=== PATIENT | female | born 1980 | race Caucasian/White ===

== ENCOUNTER 2018-01-12 20:48 | Emergency (ER) | payer OTHER, MEDICAID, SELFPAY ==
--- NOTE | 2018-08-07 00:49 | ED.PREGNANCY ---
HPI - Related Data Home Medications Medication Instructions Recorded Confirmed acetaminophen 325 mg capsule 325 mg PO Q6H PRN 05/22/18 05/22/18 albuterol sulfate 90 mcg/actuation 2 puff INHALATION Q6H PRN 05/22/18 05/22/18 breath activated powder inhaler clotrimazole 1 % vaginal cream 1 applicator VAG BEDTIME 05/22/18 05/22/18 1 tab PO DAILY 05/22/18 05/22/18 vitamin,calcium,kvrdahle-dmqe-odxyw acid tablet Previous Rx's Medication Instructions Recorded amoxicillin 875 mg-potassium 1 tab PO BID #20 tab 07/18/18 clavulanate 125 mg tablet Allergies Allergy/AdvReac Type Severity Reaction Status Date / Time bee venom protein (honey bee) Allergy Unknown Verified 05/22/18 15:38 aspirin AdvReac Vomits Verified 05/22/18 15:38 Course Course Narrative: The patient was evaluated for threatened miscarriage in the ER on 01/12/2018. Unfortunately the patient had been registered under an increased name. All treatment was recorded under that in creatinine,. The chart was administrated the corrected, the record was reentered crackly under her name. She was describing the ER with a diagnosis of threatened miscarriage. On the date above. Her record is correctly under her name. Discharge Plan Departure Patient Disposition: Home Clinical Impression: Administrative encounter Discharge Date/Time: 01/12/18 23:47 Prescriptions: No Action clotrimazole 1 % cream 1 applicator VAG BEDTIME RF: 0 prenat.vits,celena,qrd-gpok-kpkur tablet 1 tab PO DAILY RF: 0 acetaminophen [Tylenol] 325 mg capsule 325 mg PO Q6H PRNRF: 0 albuterol sulfate 90 mcg/actuation aerosol powdr breath activated 2 puff INHALATION Q6H PRNRF: 0 amoxicillin-pot clavulanate [Augmentin] 875-125 mg tablet 1 tab PO BID Qty: 20 RF: 0
== END 2018-01-12 23:47 | disposition home or self-care (01) ==
LOC: ED 05-24 14:20
PROVIDERS: Emergency Provider Emergency Medicine; PCP Specialist
DX: O20.0 Threatened abortion (principal)
CPT/HCPCS: 36415; 81001; 81003; 81025; 84702; 85025; 86900; 86901; 99283; 99284

== ENCOUNTER → 2018-05-22 15:28 | Outpatient (CLI) | payer OTHER, MEDICAID, SELFPAY ==
[2018-05-22 16:14] LABS: Hemoglobin A1C% w Est Avg Glu 5.6 % (4.0-6.0)
[2018-05-22 16:19] LABS: Add Manual Diff / Slide Review NO; Basophils Percent Auto 0.3 % (0-2); Eosinophils Percent Auto 1.1 % (2-4); Hemoglobin 12.5 g/dL (12.0-16.0); Lymphocytes Percent Auto 16.1 % (25-40); Mean Corpuscular HGB Conc 33.9 % (30-36); Mean Corpuscular Volume 91.3 fL (80-100); Monocytes Percent Auto 7.3 % (3-14); Neutrophils Absolute Auto 9700 /uL (3000-5900); Neutrophils Percent Auto 75.2 % (50-75); Platelet Count 358 X10^3/uL (150-400); Red Blood Cell Count 4.05 X10^6/uL (4.0-5.2); Red Cell Distribution Width 13.2 % (11.6-14.8); White Blood Cell Count 12.8 X10^3/uL (4.5-11.0)
[2018-05-22 16:33] LABS: Glucose 101 mg/dL (70-100)
[2018-05-22 17:02] LABS: Appearance Urine UA CLEAR; Bilirubin Urine UA NEGATIVE (NEGATIVE); Color Urine UA YELLOW; Glucose Urine UA TRACE g/dL (Normal); Ketones Urine UA TRACE (NEGATIVE); Leukocyte Esterase Urine UA NEGATIVE (NEGATIVE); Nitrite Urine UA NEGATIVE (Negative); Occult Blood Urine UA 2+ (Negative); Protein Urine UA NEGATIVE (Negative); Specific Gravity Urine UA 1.025 (1.000-1.035); Urobilinogen Urine UA 0.2 E.U./dL (0.2)
[2018-05-22 17:06] LABS: Hepatitis B Surface Antigen NEGATIVE s/c (NEGATIVE); Rubella Antibody IgG 17.5 IU/mL (>15)
[2018-05-22 17:16] LABS: Amorphous Sediment Urine 1+; Bacteria Urine Moderate (10-30); Mucus Urine 1+ (Negative); RBC Urine 1-5/HPF (0-5/HPF); Squamous Epithelial Cell Urine 1-5 /HPF; WBC Urine 1-5/HPF (0-5/HPF)
[2018-05-22 17:24] LABS: HIV 1 and 2 Antibody NEGATIVE (NEGATIVE); Hep C Virus Ab w/Reflex Quant NEGATIVE s/c (NEGATIVE)
[2018-05-24 14:21] LABS: RPR Screen Nonreactive (Nonreactive)
[2018-05-24 15:19] LABS: HSV 2 IGG AB < 0.90 index (< 0.90)
== END ==
PROVIDERS: PCP Specialist
DX: Z34.81 Encounter for supervision of other normal pregnancy, first trimester (principal)
CPT/HCPCS: 36415; 80055; 81003; 81015; 82947; 83036; 86695; 86696; 86703; 86787; 86803; 86850; 86900; 86901; 87086

== ENCOUNTER → 2018-06-19 14:21 | Outpatient (CLI) | payer OTHER, MEDICAID, SELFPAY ==
[2018-06-22 14:59] LABS: Sequential Screen 1st Trimeste FINAL PENDING
== END ==
PROVIDERS: PCP Specialist
DX: Z33.1 Pregnant state, incidental (principal); Z36.0 Encounter for antenatal screening for chromosomal anomalies; Z34.81 Encounter for supervision of other normal pregnancy, first trimester
CPT/HCPCS: 84163; 84702

== ENCOUNTER → 2018-08-08 15:11 | Outpatient (CLI) | payer OTHER, MEDICAID, SELFPAY ==
[2018-08-15 11:14] LABS: Sequential Screen 2nd Trimeste SCREEN NEGATIVE
== END ==
DX: Z34.82 Encounter for supervision of other normal pregnancy, second trimester (principal); Z13.79 Encounter for other screening for genetic and chromosomal anomalies; Z3A.20 20 weeks gestation of pregnancy
CPT/HCPCS: 36415; 82105; 82677; 84163; 84702; 86336

== ENCOUNTER → 2018-11-21 13:52 | Outpatient (CLI) | payer OTHER, MEDICAID, SELFPAY ==
[2018-11-23 13:21] LABS: Strep Grp B PCR NEG for Grp B Strep
== END ==
PROVIDERS: PCP Specialist
DX: Z34.83 Encounter for supervision of other normal pregnancy, third trimester (principal); Z3A.35 35 weeks gestation of pregnancy
CPT/HCPCS: 87653

== ENCOUNTER 2018-11-24 16:39 | Outpatient (CLI) | payer OTHER, MEDICAID, SELFPAY | END 2018-11-24 18:34 | disposition home or self-care (01) | LOC: LABOR 18:18 → OB 11-28 08:21 | PROVIDERS: PCP Specialist | DX: Z36.88 Encounter for antenatal screening for fetal macrosomia (principal); O24.429 Gestational diabetes mellitus in childbirth, unspecified control; Z3A.36 36 weeks gestation of pregnancy | CPT/HCPCS: 59025; G0378; G0379 ==

== ENCOUNTER 2018-12-01 16:03 | Outpatient (CLI) | payer OTHER, MEDICAID, SELFPAY ==
--- NOTE | 2018-12-08 15:02 | CM.SWNOTE ---
TC from Parris Roa from [facility], CPS P# [phone], requesting a call be made to CPS upon delivery of baby. Mom has oldest child in custody and there is a current dependency case open w/mom. SHAHNAZ Ho
== END 2018-12-01 16:37 | disposition home or self-care (01) ==
LOC: LABOR 16:26 → OB 12-05 13:07
PROVIDERS: PCP Specialist
DX: O47.1 False labor at or after 37 completed weeks of gestation (principal); Z3A.37 37 weeks gestation of pregnancy
CPT/HCPCS: 59025; G0378; G0379

== ENCOUNTER 2018-12-08 15:50 | Outpatient (CLI) | payer OTHER, MEDICAID, SELFPAY | END 2018-12-08 17:00 | disposition home or self-care (01) | LOC: LABOR 17:36 → OB 12-11 14:23 | PROVIDERS: PCP Specialist | DX: O24.419 Gestational diabetes mellitus in pregnancy, unspecified control (principal) | CPT/HCPCS: 59025; G0378; G0379 ==

== ENCOUNTER 2018-12-13 13:08 | Inpatient (IN) | payer OTHER, MEDICAID, SELFPAY ==
--- NOTE | 2018-12-13 13:42 | DI.US.S_ITS ---
PROCEDURE: US OB >= 14 WEEKS FETUS INDICATIONS: EFW OUTSIDE/PRIOR DATING DATA: Last menstrual period (LMP): 12/26. LMP-based estimated date of delivery (TRINIDAD): 12/21/18. First dating scan (date and location): 05/30/18, by Dr. Villa. Estimated date of delivery (TRINIDAD) from first dating scan: 12/20/18, by Dr. Villa. TECHNIQUE: Real-time scanning was performed of the fetus, with image documentation and biometric measurements. Endovaginal scanning: Not needed for this study. COMPARISON: [facility], , US OB >= 14 WEEKS FETUS, 11/01/2018, 13:00. [facility], , US OB >= 14 WEEKS FETUS, 06/19/2018, 13:54. [facility], , US OB <= 14 WEEKS FETUS, 05/30/2018, 14:09. [facility], OB >= 14 WEEKS FETUS, 12/08/2018, 10:10. [facility], , US OB >= 14 WEEKS FETUS, 11/24/2018, 16:21. FINDINGS: General: A single living intrauterine gestation is present. Presentation: Vertex. Placenta: Placental position is fundal, without previa. Amniotic fluid index: 7.5 cm, normal range is 5-24 cm. heart rate: 141 beats per minute. Maternal cervical canal: Obscured by deep vertex presentation. biometrics: Biparietal diameter: 9.4 cm, 38 weeks 0 days Head circumference: 34.1 cm, 39 weeks 1 day Abdominal circumference: 37.1 cm, 41 weeks 0 days Femur length: 7.5 cm, 38 weeks 1 day Estimated gestational age from initial scan: 39 weeks 0 days Composite gestational age from present scan: 39 weeks 1 day Estimated weight and percentile: 3909 g, 83rd percentile Measurement variability for biometric dating: +/- 7 days from 14 weeks to 15 weeks 6 days gestation, +/- 10 days from 16 weeks to 21 weeks 6 days gestation, +/- 2 weeks from 22 weeks to 27 weeks 6 days gestation, +/- 3 weeks for 28 weeks gestation or later. weight reference: 4500 g or EFW >90/95% is considered macrosomia or large for gestational age. EFW <10% is small for gestational age. EFW 5% or less is considered intra-uterine growth restriction. IMPRESSION: Please refer to earlier OB ultrasound examinations for anatomic survey. Current gestation is near-term and anatomic survey is performed at approximately 20 weeks gestation. Appropriate interval growth. Delivery date is projected to be centered on 12/20/18. Dictated by: Tony Enriquez M.D. on 12/13/2018 at 14:58 Approved by: Tony Enriquez M.D. on 12/13/2018 at 15:07
[2018-12-13 13:49] LABS: Urine Amphetamines Negative (Negative); Urine Barbiturates Negative (Negative); Urine Benzodiazepines Negative (Negative); Urine Cocaine Negative (Negative); Urine MDMA Negative (Negative); Urine Methadone Negative (Negative); Urine Methamphetamines Negative (Negative); Urine Morphine/Opi cutoff 2000 Negative (Negative); Urine Oxycodone Negative (Negative); Urine Phencyclidine Negative (Negative); Urine Tetrahydrocannabinol Negative (Negative); Urine Tricyclic Antidepressant Negative (Negative)
[2018-12-13 18:20] LABS: Add Manual Diff / Slide Review NO; Basophils Absolute Auto 100 /uL (0-100); Basophils Percent Auto 0.5 % (0-2); Eosinophils Absolute Auto 100 /uL (0-450); Eosinophils Percent Auto 0.7 % (2-4); Hematocrit 36.4 % (36-46); Hemoglobin 12.5 g/dL (12.0-16.0); Lymphocytes Absolute Auto 1900 /uL (1100-4500); Lymphocytes Percent Auto 14.2 % (25-40); Mean Corpuscular HGB Conc 34.3 % (30-36); Mean Corpuscular Hemoglobin 31.5 PG (26-34); Mean Corpuscular Volume 91.9 fL (80-100); Monocytes Absolute Auto 700 /uL (0-900); Monocytes Percent Auto 5.3 % (3-14); Neutrophils Absolute Auto 10400 /uL (1500-7000); Neutrophils Percent Auto 79.3 % (50-75); Platelet Count 338 X10^3/uL (150-400); Red Blood Cell Count 3.96 X10^6/uL (4.0-5.2); Red Cell Distribution Width 14.2 % (11.6-14.8); White Blood Cell Count 13.1 X10^3/uL (4.5-11.0)
[2018-12-13] MEDS: CALCIUM CARBONATE 500 MG TAB 1000 MG PO (20:29)
[2018-12-14] MEDS: CALCIUM CARBONATE 500 MG TAB 1000 MG PO (00:37)
[2018-12-14] MEDS: LACTATED RINGERS 1,000 ML 100 ML IV (05:37)
[2018-12-14] MEDS: OXYTOCIN PREMIX 30 UNIT/500 ML PLAST..BAG IV (05:37)
--- NOTE | 2018-12-14 09:07 | PM.OBHP.1 ---
OB HPI Date/Time Date of admission: 12/13/18 Date Patient Seen: 12/14/18 Time Patient Seen: 09:08 History of Present Condition Chief complaint: OBS : 3 Para: 1 Estimated Date of Delivery: 12/21/18 Estimated Gestational Age (weeks): 39 Narrative: Jeni Baptiste is a 38 year old female 3 para at 39 weeks gestation for induction of labor Patient is an uncontrolled gestational diabetic. Indications Indication for induction OB: medical complication (Uncontrolled gestational [id number]) History of Present care: good care, initiated at week # (10), number of visits (11) and pounds weight gain (32) Dating criteria: LMP confirmed by 1st trimester US Ultrasounds: normal 1st trimester US and normal mid trimester US Obstetrical complications: gestational diabetes (Uncontrolled) Medical complications: none Preadmission Labs Blood type: A (+) positive -: Antibody screen: negative, GBS status: negative, HBsAG: negative, HIV: negative, HSV 1: positive, HSV 2: negative and RPR/VDLR: negative -: Rubella: not immune and Varicella: immune HCT: 34.8 HCAB: negative Quad screen: Normal Urine: No growth 1 hr GTT: 192 3 hr GTT: 1 hr (272), 2 hr (227) and 3 hr (111) Fasting blood glucose: 102 Prior (ies) History: 05/22 Vacuum-assisted vaginal delivery 39.5 Sandip Occiput posterior 2018 7 weeks, SAB Evaluation Evaluation Baseline heart rate: 130 Variability: Average (6-10) monitor accelerations: Present monitor decelerations: Absent Contraction Frequency (minutes): 4 Uterine Contraction Intensity: Mild Category of Tracing: I Cervical dilation (cm): 4 Cervical effacement (%): 100 station: -1 Laboratory results: Laboratory Tests 12/13/18 12/13/18 13:30 18:00 WBC 13.1 H RBC 3.96 L Hgb 12.5 Hct 36.4 MCV 91.9 MCH 31.5 MCHC 34.3 RDW 14.2 Plt Count 338 Neut % (Auto) 79.3 H Lymph % (Auto) 14.2 L [place] % (Auto) 5.3 Eos % (Auto) 0.7 L Baso % (Auto) 0.5 Neut # (Auto) 03613 H Lymph # (Auto) 1900 [place] # (Auto) 700 Eos # (Auto) 100 Baso # (Auto) 100 Urine Opiates Screen Negative Ur Oxycodone Screen Negative Urine Methadone Screen Negative Ur Barbiturates Screen Negative U Tricyclic Antidepress Negative Ur Phencyclidine Scrn Negative Ur Amphetamines Screen Negative U Methamphetamines Scrn Negative Ur MDMA Scrn (Ecstasy) Negative U Benzodiazepines Scrn Negative Urine Cocaine Screen Negative U Marijuana (THC) Screen Negative Non-invasive Membranes Rupture Test: positive [facility] Medical History Asthma (Acute) Darier's disease (Acute) Gallstones (Acute) Social History (System 05/24/18 @ 12:32 by Estrella Jimenez) Smoking Status: Former smoker Social History Smoking Status: Former smoker Meds Home Medications Medication Instructions Recorded Confirmed Type acetaminophen 325 mg capsule 325 mg PO Q6H PRN 05/22/18 05/22/18 History albuterol sulfate 90 mcg/actuation 2 puff INHALATION Q6H PRN 05/22/18 05/22/18 History breath activated powder inhaler clotrimazole 1 % vaginal cream 1 applicator VAG BEDTIME 05/22/18 05/22/18 History 1 tab PO DAILY 05/22/18 05/22/18 History vitamin,calcium,pmxgfwct-mwhn-gmddz acid tablet amoxicillin 875 mg-potassium 1 tab PO BID #20 tab 07/18/18 Rx clavulanate 125 mg tablet Double Electric Breast Pump #1 ea 08/30/18 Rx blood-glucose meter kit #1 each 10/27/18 Rx Allergies Allergy/AdvReac Type Severity Reaction Status Date / Time bee venom protein (honey bee) Allergy Unknown Verified 05/22/18 15:38 aspirin AdvReac Vomits Verified 05/22/18 15:38 Exam Vital Signs (past 8 hours): Generally: A well-developed, well-nourished white female, no acute distress Lungs: Clear to auscultation bilaterally Cardiovascular: Regular rate and rhythm Fundal height: 44 cm Estimated weight: 8 lb 10 oz by ultrasound 12/13/2018 Extremities: Trace edema, negative Homans Objective Labs Result Diagrams: 12/13/18 18:00 Labs: Laboratory Results - last 24 hr 12/13/18 12/13/18 13:30 18:00 WBC 13.1 H RBC 3.96 L Hgb 12.5 Hct 36.4 MCV 91.9 MCH 31.5 MCHC 34.3 RDW 14.2 Plt Count 338 Neut % (Auto) 79.3 H Lymph % (Auto) 14.2 L [place] % (Auto) 5.3 Eos % (Auto) 0.7 L Baso % (Auto) 0.5 Neut # (Auto) 53551 H Lymph # (Auto) 1900 [place] # (Auto) 700 Eos # (Auto) 100 Baso # (Auto) 100 Urine Opiates Screen Negative Ur Oxycodone Screen Negative Urine Methadone Screen Negative Ur Barbiturates Screen Negative U Tricyclic Antidepress Negative Ur Phencyclidine Scrn Negative Ur Amphetamines Screen Negative U Methamphetamines Scrn Negative Ur MDMA Scrn (Ecstasy) Negative U Benzodiazepines Scrn Negative Urine Cocaine Screen Negative U Marijuana (THC) Screen Negative Assessment and Plan Assessment and Plan Assessment and Plan narrative: Assessment: 38-year-old 3 para 1 at 39 weeks gestation for induction secondary to uncontrolled gestational diabetes Status post spontaneous rupture of membranes at 8:10 a.m. this morning Plan: Pitocin per protocol 2 Blood sugars q.2 hours and will cover with insulin Expectant management to spontaneous vaginal delivery Pediatrics notified Time Spent with Patient Total time spent with greater than 50% in coordination of care (as documented) at patient's floor/unit and/or counseling patient:: 15-24 minutes
--- NOTE | 2018-12-14 09:12 | P.HPOB_ITS ---
OB HPI Date/Time Date of admission: 12/13/18 Date Patient Seen: 12/14/18 Time Patient Seen: 09:08 History of Present Condition Chief complaint: OBS : 3 Para: 1 Estimated Date of Delivery: 12/21/18 Estimated Gestational Age (weeks): 39 Narrative: Jeni Baptiste is a 38 year old female 3 para at 39 wee ks gestation for induction of labor Patient is an uncontrolled gestational diabetic. Indications Indication for induction OB: medical complication (Uncontrolled gestational [id number]) History of Present care: good care, initiated at week # (10), number of visits (11) and pounds weight gain (32) Dating criteria: LMP confirmed by 1st trimester US Ultrasounds: normal 1st trimester US and normal mid trimester US Obstetrical complications: gestational diabetes (Uncontrolled) Medical complications: none Preadmission Labs Blood type: A (+) positive -: Antibody screen: negative, GBS status: negative, HBsAG: negative, HIV: negative, HSV 1: positive, HSV 2: negative and RPR/VDLR: negative -: Rubella: not immune and Varicella: immune HCT: 34.8 HCAB: negative Quad screen: Normal Urine: No growth 1 hr GTT: 192 3 hr GTT: 1 hr (272), 2 hr (227) and 3 hr (111) Fasting blood glucose: 102 Prior (ies) History: 05/22 Vacuum-assisted vaginal delivery 39.5 Sandip Occiput posterior 2018 7 weeks, SAB Evaluation Evaluation Baseline heart rate: 130 Variability: Average (6-10) monitor accelerations: Present monitor decelerations: Absent Contraction Frequency (minutes): 4 Uterine Contraction Intensity: Mild Category of Tracing: I Cervical dilation (cm): 4 Cervical effacement (%): 100 station: -1 Laboratory results: Laboratory Tests 12/13/18 12/13/18 13:30 18:00 WBC 13.1 H RBC 3.96 L Hgb 12.5 Hct 36.4 MCV 91.9 MCH 31.5 MCHC 34.3 RDW 14.2 Plt Count 338 Neut % (Auto) 79.3 H Lymph % (Auto) 14.2 L [place] % (Auto) 5.3 Eos % (Auto) 0.7 L Baso % (Auto) 0.5 Neut # (Auto) 19724 H Lymph # (Auto) 1900 [place] # (Auto) 700 Eos # (Auto) 100 Baso # (Auto) 100 Urine Opiates Screen Negative Ur Oxycodone Screen Negative Urine Methadone Screen Negative Ur Barbiturates Screen Negative U Tricyclic Antidepress Negative Ur Phencyclidine Scrn Negative Ur Amphetamines Screen Negative U Methamphetamines Scrn Negative Ur MDMA Scrn (Ecstasy) Negative U Benzodiazepines Scrn Negative Urine Cocaine Screen Negative U Marijuana (THC) Screen Negative Non-invasive Membranes Rupture Test: positive [facility] Medical History Asthma (Acute) Darier's disease (Acute) Gallstones (Acute) Social History (System 05/24/18 @ 12:32 by Estrella Jimenez) Smoking Status: Former smoker Social History Smoking Status: Former smoker Meds Home Medications Medication Instructions Recorded Confirmed Type acetaminophen 325 mg capsule 325 mg PO Q6H PRN 05/22/18 05/22/18 History albuterol sulfate 90 mcg/actuation 2 puff INHALATION Q6H PRN 05/22/18 05/22/18 History breath activated powder inhaler clotrimazole 1 % vaginal cream 1 applicator VAG BEDTIME 05/22/18 05/22/18 History 1 tab PO DAILY 05/22/18 05/22/18 History vitamin,calcium,uvtpocoe-ryrc-qgetz acid tablet amoxicillin 875 mg-potassium 1 tab PO BID #20 tab 07/18/18 Rx clavulanate 125 mg tablet Double Electric Breast Pump #1 ea 08/30/18 Rx blood-glucose meter kit #1 each 10/27/18 Rx Allergies Allergy/AdvReac Type Severity Reaction Status Date / Time bee venom protein (honey bee) Allergy Unknown Verified 05/22/18 15:38 aspirin AdvReac Vomits Verified 05/22/18 15:38 Exam Vital Signs (past 8 hours): Generally: A well-developed, well-nourished white female, no acute distress Lungs: Clear to auscultation bilaterally Cardiovascular: Regular rate and rhythm Fundal height: 44 cm Estimated weight: 8 lb 10 oz by ultrasound 12/13/2018 Extremities: Trace edema, negative Homans Objective Labs Result Diagrams: 12/13/18 18:00 Labs: Laboratory Results - last 24 hr 12/13/18 12/13/18 13:30 18:00 WBC 13.1 H RBC 3.96 L Hgb 12.5 Hct 36.4 MCV 91.9 MCH 31.5 MCHC 34.3 RDW 14.2 Plt Count 338 Neut % (Auto) 79.3 H Lymph % (Auto) 14.2 L [place] % (Auto) 5.3 Eos % (Auto) 0.7 L Baso % (Auto) 0.5 Neut # (Auto) 83560 H Lymph # (Auto) 1900 [place] # (Auto) 700 Eos # (Auto) 100 Baso # (Auto) 100 Urine Opiates Screen Negative Ur Oxycodone Screen Negative Urine Methadone Screen Negative Ur Barbiturates Screen Negative U Tricyclic Antidepress Negative Ur Phencyclidine Scrn Negative Ur Amphetamines Screen Negative U Methamphetamines Scrn Negative Ur MDMA Scrn (Ecstasy) Negative U Benzodiazepines Scrn Negative Urine Cocaine Screen Negative U Marijuana (THC) Screen Negative Assessment and Plan Assessment and Plan Assessment and Plan narrative: Assessment: 38-year-old 3 para 1 at 39 weeks gestation for induction secondary to uncontrolled gestational diabetes Status post spontaneous rupture of membranes at 8:10 a.m. this morning Plan: Pitocin per protocol 2 Blood sugars q.2 hours and will cover with insulin Expectant management to spontaneous vaginal delivery Pediatrics notified Time Spent with Patient Total time spent with greater than 50% in coordination of care (as documented) at patient's floor/unit and/or counseling patient:: 15-24 minutes
[2018-12-14 11:44] LABS: Urine N gonorrhoeae NOT DETECTED
[2018-12-14 11:58] LABS: Urine Chlamydia NOT DETECTED
--- NOTE | 2018-12-14 12:34 | PM.OBPRVD ---
Events: Gestational Diabetes (Uncontrolled) Delivery date: 12/14/18 Cervical ripening method: none Induction method: per pitocin protocol Delivery monitor: external FHT and external uterine Route of delivery: Episiotomy description: None L&D Laceration Description: Perineal - 1st Degree Delivery repair: chromic Estimated blood loss (mL): 150 Anesthesia type: None Complications: None Narrative: Patient complete and pushed x 30 minutes. At 11:57 a.m. a live male infant delivered spontaneously over an intact perineum. A loose nuchal cord x1 was reduced. The remainder of the body delivered without difficulty and was placed on mom's abdomen. After the cord stopped pulsing, the cord was double clamped and cut. Cord bloods were obtained. The placenta delivered intact with a 3 vessel cord at 12:00 p.m.. Fundus was massaged to firm. Pitocin was given in the IV fluids. A first-degree perineal laceration was repaired with 3 0 chromic in the usual fashion. Hemostasis was achieved. Estimated blood loss 150 cc. Apgars 8 at 1 minute and 9 at 5 minutes. . No analgesia except for local with the repair. Mom and stable to recovery. Plan for aftercare: To routine care
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
[2018-12-14] MEDS: DERMOPLAST SPRAY 20% 60 ML 1 SPRAY TOP (15:25)
[2018-12-14 17:47] VITALS: BP 134/75
[2018-12-14] MEDS: IBUPROFEN 600 MG TABLET PO (20:24)
[2018-12-15 06:31] LABS: Hematocrit 35.9 % (36-46); Hemoglobin 12.1 g/dL (12.0-16.0)
--- NOTE | 2018-12-15 11:48 | P.DS_ITS ---
Discharge Providers Date of admission: 12/13/18 13:08 Discharge Date: 12/15/18 Primary care physician: Vy Morel MD Consults: 12/15/18 12:29 Consult to Skiing Teacher Routine Comment: Discharge provider: Shreya Betancur MD Summary Date Patient Seen: 12/15/18 Time Patient Seen: 11:46 Procedures: Induction of labor with Pitocin Spontaneous vaginal delivery First-degree laceration repair Epidural analgesia Hospital Course: Patient is a 38-year-old 3 para 1 who was at 39 weeks gestation who presented for induction of labor secondary to gestational diabetes that was uncontrolled. She received Pitocin per protocol 2. She had a spontaneous rupture of membranes. She progressed to complete dilation and pushed for approximately 30 minutes. She had a spontaneous vaginal delivery. Her blood sugars throughout the labor were well controlled Her course was unremarkable. She is discharged home to follow up at 6 weeks Peripartum Data Delivery Method: Natural Vaginal Laceration description: Perineal - 1st Degree Episiotomy description: None Procedures: Pitocin induction of labor Epidural analgesia Spontaneous vaginal delivery First-degree perineal laceration repair complications: none Status at Discharge Cognitive/behavioral status at discharge: oriented Functional status at discharge: independent ambulation Overall status at discharge: patient is progressing back to baseline Time Spent with Patient Total time spent providing and/or coordinating discharge services: Less than 30 minutes Objective Labs Result Diagrams: 12/15/18 06:15 Labs: Laboratory Results - last 24 hr 12/13/18 12/14/18 12/15/18 18:00 09:52 06:15 Hgb 12.1 Hct 35.9 L Ur Chlamydia DNA (PCR) Not detected N gonorrhoeae DNA (PCR) Not detected Blood Type A Positive Antibody Screen Negative Exam Vital Signs (past 8 hours): Generally: Patient is sitting up in bed, no acute distress Fundus: Firm at U -1 Extremities: Negative Homans, no edema Discharge Plan Discharge Plan Patient Disposition: Home Discharge comment: Call with fever, chills or bleeding vaginally more than a pad in an hour Discharge Med Rec/Prescriptions Prescriptions: New ibuprofen 600 mg tablet 600 mg PO TID Qty: 20 RF: 2 Continued prenat.vits,celena,xrx-ltbk-nmkdy tablet 1 tab PO DAILY RF: 0 acetaminophen [Tylenol] 325 mg capsule 325 mg PO Q6H PRNRF: 0 albuterol sulfate 90 mcg/actuation aerosol powdr breath activated 2 puff INHALATION Q6H PRNRF: 0 Discontinued clotrimazole 1 % cream 1 applicator VAG BEDTIME RF: 0 amoxicillin-pot clavulanate [Augmentin] 875-125 mg tablet 1 tab PO BID Qty: 20 RF: 0 No Action Double Electric Breast Pump Qty: 1 RF: 0 blood-glucose meter [Blood Glucose Monitoring] kit .ROUTE .MEDSUPPLY Qty: 1 RF: 3 Follow up/Referrals: Edwin Villa MD [Physician] - 6 Weeks (Needs 2 hr GTT) Provider Discharge Instructions Diet: Regular Activity: No intercourse Skin/Wound/Dressing Care Report to your healthcare provider any signs of infection, such as:: chills, fever, increased pain, unusual drainage and unusual redness Visit Report/Discharge Packet Instructions: DI for Labor and Delivery, Vaginal Discharge Data Primary Care Provider: Vy Morel Attending Provider: Shreya Betancur Admminoo Date/Time: 12/13/18 13:08
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
[2018-12-15 13:18] VITALS: BP 129/77; PULSE 79; RESP 18; TEMP 37.2
[2018-12-15] MEDS: PRENATAL VIT,CALC/IRON/FOLIC 1 TABLET 1 TAB PO (13:18)
[2018-12-15] MEDS: DOCUSATE 250 MG CAPSULE PO (13:19)
[2018-12-15] MEDS: IBUPROFEN 600 MG TABLET PO (18:08)
[2018-12-15] MEDS: MEASLES,MUMPS,RUBELLA VACC/PF 0.5 ML VIAL SUBCUT (18:15)
== END 2018-12-15 18:20 | disposition home or self-care (01) | DRG 560 ==
PROVIDERS: Admitting Provider Obstetrics & Gynecology; PCP Specialist; Visit Provider Obstetrics & Gynecology
DX: O24.429 Gestational diabetes mellitus in childbirth, unspecified control (principal); O70.0 First degree perineal laceration during delivery; Z3A.39 39 weeks gestation of pregnancy; Z37.0 Single live birth
CPT/HCPCS: 36415; 59050; 59409; 76811; 80305; 85014; 85018; 85025; 86850; 86900; 86901; 87491; 87591; G0379; J2590

== ENCOUNTER → 2019-12-19 14:32 | Outpatient (CLI) | payer OTHER, MEDICAID, SELFPAY ==
[2019-12-19 15:05] LABS: Add Manual Diff / Slide Review NO; Basophils Absolute Auto 100 /uL (0-100); Basophils Percent Auto 0.4 % (0-2); Eosinophils Absolute Auto 100 /uL (0-450); Eosinophils Percent Auto 0.9 % (2-4); Hematocrit 38.9 % (36-46); Hemoglobin 13.4 g/dL (12.0-16.0); Lymphocytes Absolute Auto 2000 /uL (1100-4500); Lymphocytes Percent Auto 14.8 % (25-40); Mean Corpuscular HGB Conc 34.4 % (30-36); Mean Corpuscular Hemoglobin 31.1 PG (26-34); Mean Corpuscular Volume 90.4 fL (80-100); Monocytes Absolute Auto 600 /uL (0-900); Monocytes Percent Auto 4.6 % (3-14); Neutrophils Absolute Auto 10900 /uL (1500-7000); Neutrophils Percent Auto 79.3 % (50-75); Platelet Count 424 X10^3/uL (150-400); Red Cell Distribution Width 13.9 % (11.6-14.8); White Blood Cell Count 13.7 X10^3/uL (4.5-11.0)
[2019-12-19 15:15] LABS: Hemoglobin A1C% w Est Avg Glu 5.8 % (4.0-6.0)
[2019-12-19 16:04] LABS: Glucose 127 mg/dL (70-100)
[2019-12-19 16:10] LABS: Appearance Urine UA SL CLOUDY; Bilirubin Urine UA NEGATIVE (NEGATIVE); Color Urine UA YELLOW; Glucose Urine UA NEGATIVE (Negative); Ketones Urine UA TRACE (NEGATIVE); Leukocyte Esterase Urine UA NEGATIVE (NEGATIVE); Nitrite Urine UA NEGATIVE (Negative); Occult Blood Urine UA TRACE-LYSED (Negative); Protein Urine UA NEGATIVE (Negative); Urobilinogen Urine UA 0.2 E.U./dL (0.2)
[2019-12-19 16:11] LABS: pH Urine UA 5.5 (4.5-8.0)
[2019-12-19 17:20] LABS: Hepatitis B Surface Antigen NEGATIVE s/c (NEGATIVE); Rubella Antibody IgG 14.9 IU/mL (>15)
[2019-12-19 17:30] LABS: HIV 1 & 2 Ab/Ag 4th Gen Combo NEGATIVE (NEGATIVE); Hep C Virus Ab w/Reflex Quant NEGATIVE s/c (NEGATIVE)
[2019-12-20 03:39] LABS: RPR Screen Non Reactive (Non Reactive)
[2019-12-20 08:17] LABS: Varicella IgG Antibody 1108 index (Immune >165)
== END ==
PROVIDERS: PCP Family Medicine; Referring Provider Specialist; Visit Provider Specialist
DX: Z34.91 Encounter for supervision of normal pregnancy, unspecified, first trimester (principal)
CPT/HCPCS: 36415; 80055; 81003; 82947; 83036; 86787; 86803; 86850; 86900; 86901; 87086; 87389

== ENCOUNTER → 2020-02-26 12:13 | Outpatient (CLI) | payer OTHER, MEDICAID, SELFPAY ==
--- NOTE | 2020-02-26 12:15 | DI.US.S_ITS ---
PROCEDURE: US OB >= 14 WEEKS FETUS INDICATIONS: 20 week anatomy OUTSIDE/PRIOR DATING DATA: First dating scan (date and location): 12/19/2019 . Estimated date of delivery (TRINIDAD) from first dating scan: 07/13/2020 . TECHNIQUE: Real-time scanning was performed of the fetus, with image documentation and biometric measurements. Endovaginal scanning: No COMPARISON: [facility] OB >= 14 WEEKS FETUS, 12/13/2018, 13:58. [facility], OB <= 14 WEEKS FETUS, 12/19/2019, 17:01. FINDINGS: General: A single living intrauterine gestation is present. Presentation: Transverse. Placenta: Placental position is posterior , without previa. Amniotic fluid index: 12.2 cm, normal range is 5-24 cm. heart rate: 150 beats per minute. Maternal cervical canal: 6.5 cm long. Normal lower limit is 2.5 cm. biometrics: Biparietal diameter: 20 weeks 3 days Head circumference: 20 weeks 0 days Abdominal circumference: 20 weeks 2 days Femur length: 20 weeks 6 days Estimated gestational age from initial scan: 20 weeks 2 days Composite gestational age from present scan: 20 weeks 3 days Estimated weight and percentile: 354 g; 54th percentile Measurement variability for biometric dating: +/- 7 days from 14 weeks to 15 weeks 6 days gestation, +/- 10 days from 16 weeks to 21 weeks 6 days gestation, +/- 2 weeks from 22 weeks to 27 weeks 6 days gestation, +/- 3 weeks for 28 weeks gestation or later. weight reference: 4500 g or EFW >90/95% is considered macrosomia or large for gestational age. EFW <10% is small for gestational age. EFW 5% or less is considered intra-uterine growth restriction. Anatomic survey: Neuro: Ventricles are non-dilated at less than 10 mm. Cisterna magna is normal at 3-11 mm. Cerebellum is normal in size and morphology. Nuchal skin fold: Normal at less than 6 mm between 14-21 weeks gestational age. Face: Nose and lips, facial profile are normal. Spine: Not well seen. Heart: 4-chambered heart is present, with normal ventricular outflow tracts. Diaphragm: Diaphragm is intact. Stomach: Left-sided stomach is present. Kidneys: No hydronephrosis. Normal is less than 5 mm in 2nd trimester, less than 7 mm in 3rd trimester. Cord: 3-vessel cord has orthotopic insertion. Marginal placental cord insertion site. Bladder: Normal in size. Extremities: Feet suboptimally visualized secondary to positioning. Possible maternal anterior uterine fibroid versus Sanjiv Osborne contraction. IMPRESSION: 1. Single living IUP redemonstrated and interval growth is normal. 2. spine and feet not well visualized; otherwise normal anatomy. 3. Uterine fibroid versus Benewah Osborne contraction. Dictated by: Brett Araujo [facility] Interpreted: Len Torres MD on 02/26/2020 at 15:49 Approved by: Len Torres M.D. on 02/26/2020 at 16:38
== END ==
PROVIDERS: PCP Family Medicine; Referring Provider Specialist; Visit Provider Specialist
DX: Z34.82 Encounter for supervision of other normal pregnancy, second trimester (principal); Z3A.20 20 weeks gestation of pregnancy
CPT/HCPCS: 76811

== ENCOUNTER → 2020-02-27 09:45 | Outpatient (CLI) | payer OTHER, MEDICAID, SELFPAY ==
[2020-03-01 21:09] LABS: AFP, Serum 35.7 ng/mL (.); Estriol, Free 1.68 ng/mL (.); Inhibin A, Dimeric 206.73 pg/mL (.); Inhibin A, MoM 1.38 (.); Maternal Ethnicity Caucasian (.); Maternal Weight 254 lbs (.); Number of Fetuses No (.); OSBR Risk 1 IN 10000 (.); Results Report (.); Test Results *Screen Positive* (.); hCG, MoM 0.72 (.); hCG, Serum 12627 mIU/mL (.)
== END ==
PROVIDERS: Referring Provider Specialist; Visit Provider Specialist
DX: O09.529 Supervision of elderly multigravida, unspecified trimester (principal); Z3A.19 19 weeks gestation of pregnancy
CPT/HCPCS: 36415; 82105; 82677; 84702; 86336

== ENCOUNTER → 2020-03-14 10:57 | Outpatient (CLI) | payer OTHER, MEDICAID, SELFPAY ==
--- NOTE | 2020-03-14 10:59 | DI.US.S_ITS ---
PROCEDURE: US OB FOLLOW UP INDICATIONS: FOLLOW UP SPINE AND FEET, NOT WELL VISUALIZED. OUTSIDE/PRIOR DATING DATA: First dating scan (date and location): 12/19/2019 Estimated date of delivery (TRINIDAD) from first dating scan: 07/13/2020 . TECHNIQUE: Real-time scanning was performed of the fetus, with image documentation and biometric measurements. Endovaginal scanning: No COMPARISON: [facility], OB >= 14 WEEKS FETUS, 02/26/2020, 12:28. FINDINGS: General: A single living intrauterine gestation is present. Presentation: Transverse. Placenta: Placental position is posterior , without previa. Amniotic fluid index: 16.2 cm, normal range is 5-24 cm. heart rate: 157 beats per minute. Maternal cervical canal: 5.8 cm long. Normal lower limit is 2.5 cm. Estimated gestational age from initial scan: 22 weeks 5 days Other: Not applicable. IMPRESSION: 1. Single living IUP redemonstrated and today's exam demonstrating normal appearance of the spine and feet. Dictated by: Brett Araujo [facility] Interpreted: Poli Landon MD on 03/14/2020 at 12:28 Approved by: Poli Landon M.D. on 03/14/2020 at 15:48
== END ==
PROVIDERS: Referring Provider Specialist; Visit Provider Specialist
DX: Z36.2 Encounter for other antenatal screening follow-up (principal); Z3A.22 22 weeks gestation of pregnancy
CPT/HCPCS: 76816

== ENCOUNTER → 2020-04-03 12:16 | Outpatient (CLI) | payer OTHER, MEDICAID, SELFPAY ==
[2020-04-03 14:00] LABS: Hematocrit 34.6 % (36-46); Hemoglobin 11.6 g/dL (12.0-16.0)
[2020-04-03 14:13] LABS: GTT (PREG) 1 Hour PP 50gm Dose 212 mg/dL (76-139)
== END ==
PROVIDERS: PCP Specialist; Referring Provider Specialist; Visit Provider Specialist
DX: Z34.82 Encounter for supervision of other normal pregnancy, second trimester (principal)
CPT/HCPCS: 36415; 82950; 85014; 85018

== ENCOUNTER → 2020-04-24 12:49 | Outpatient (CLI) | payer OTHER, MEDICAID, SELFPAY | PROVIDERS: PCP Specialist; Visit Provider Specialist | DX: Z34.02 Encounter for supervision of normal first pregnancy, second trimester (principal); Z3A.27 27 weeks gestation of pregnancy | CPT/HCPCS: 87086 ==

== ENCOUNTER 2020-05-29 23:32 | Outpatient (CLI) | payer OTHER, MEDICAID, SELFPAY ==
[2020-05-30 00:09] LABS: RBC Urine None Seen (0-5/HPF)
[2020-05-30 00:36] LABS: Add Manual Diff / Slide Review NO; Basophils Absolute Auto 0 /uL (0-100); Basophils Percent Auto 0.2 % (0-2); Eosinophils Absolute Auto 100 /uL (0-450); Eosinophils Percent Auto 1.2 % (2-4); Hematocrit 32.6 % (36-46); Hemoglobin 11.3 g/dL (12.0-16.0); Lymphocytes Absolute Auto 2300 /uL (1100-4500); Mean Corpuscular HGB Conc 34.6 % (30-36); Mean Corpuscular Hemoglobin 31.1 PG (26-34); Mean Corpuscular Volume 89.7 fL (80-100); Monocytes Absolute Auto 900 /uL (0-900); Monocytes Percent Auto 7.5 % (3-14); Neutrophils Absolute Auto 8700 /uL (1500-7000); Neutrophils Percent Auto 72.1 % (50-75); Platelet Count 331 X10^3/uL (150-400); Red Blood Cell Count 3.63 X10^6/uL (4.0-5.2); Red Cell Distribution Width 14.2 % (11.6-14.8); White Blood Cell Count 12.1 X10^3/uL (4.5-11.0)
[2020-05-30 00:42] LABS: Aspartate Aminotransferase 19 IU/L (14-36); BUN Creatinine Ratio 8.9 (6-22); Blood Urea Nitrogen 4 mg/dL (7-17); Estimated Glomerular Filt Rate > 60.0 mL/min (>60); Uric Acid 4.8 mg/dL (2.5-6.2)
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
[2020-05-30 00:58] LABS: Appearance Urine UA CLEAR; Bilirubin Urine UA NEGATIVE (NEGATIVE); Color Urine UA YELLOW; Glucose Urine UA NEGATIVE (Negative); Ketones Urine UA NEGATIVE (NEGATIVE); Leukocyte Esterase Urine UA TRACE (NEGATIVE); Nitrite Urine UA NEGATIVE (Negative); Occult Blood Urine UA TRACE-LYSED (Negative); Protein Urine UA NEGATIVE (Negative); Urobilinogen Urine UA 0.2 E.U./dL (0.2)
[2020-05-30 01:06] LABS: pH Urine UA 6.5 (4.5-8.0)
[2020-05-30 01:11] LABS: Squamous Epithelial Cell Urine 1-5 /HPF (0-5/HPF); WBC Urine 0-1/HPF (0-5/HPF)
[2020-05-30 01:12] LABS: Bacteria Urine Few (2-10); Culture Indicated Urine Cult Not Indicated
== END 2020-05-30 01:15 | disposition home or self-care (01) ==
LOC: OB 05-30 10:11
PROVIDERS: PCP Specialist; Referring Provider Family Medicine; Visit Provider Family Medicine
DX: O13.3 Gestational [pregnancy-induced] hypertension without significant proteinuria, third trimester (principal); O24.415 Gestational diabetes mellitus in pregnancy, controlled by oral hypoglycemic drugs; O09.523 Supervision of elderly multigravida, third trimester; R10.2 Pelvic and perineal pain; Z3A.33 33 weeks gestation of pregnancy
CPT/HCPCS: 36415; 59025; 59050; 81001; 84450; 84550; 85025; G0378; G0379

== ENCOUNTER 2020-06-16 15:37 | Outpatient (CLI) | payer OTHER, MEDICAID, SELFPAY ==
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
== END 2020-06-16 16:50 | disposition home or self-care (01) ==
LOC: LABOR 16:26 → OB 06-17 09:29
PROVIDERS: Referring Provider Specialist; Visit Provider Specialist
DX: O24.419 Gestational diabetes mellitus in pregnancy, unspecified control (principal); O47.03 False labor before 37 completed weeks of gestation, third trimester; O09.523 Supervision of elderly multigravida, third trimester; Z3A.35 35 weeks gestation of pregnancy
CPT/HCPCS: 59025; G0378; G0379

== ENCOUNTER → 2020-06-23 16:06 | Outpatient (CLI) | payer OTHER, MEDICAID, SELFPAY ==
[2020-06-24 11:01] LABS: Strep Grp B PCR NEG for Grp B Strep
== END ==
PROVIDERS: Visit Provider Specialist
DX: Z34.83 Encounter for supervision of other normal pregnancy, third trimester (principal); Z3A.36 36 weeks gestation of pregnancy
CPT/HCPCS: 87653

== ENCOUNTER 2020-06-23 16:25 | Outpatient (CLI) | payer OTHER, MEDICAID, SELFPAY ==
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
== END 2020-06-23 16:58 | disposition home or self-care (01) ==
LOC: LABOR 16:49 → OB 06-24 09:37
PROVIDERS: Referring Provider Specialist; Visit Provider Specialist
DX: O13.9 Gestational [pregnancy-induced] hypertension without significant proteinuria, unspecified trimester (principal); O24.419 Gestational diabetes mellitus in pregnancy, unspecified control; Z3A.36 36 weeks gestation of pregnancy
CPT/HCPCS: 59025; 87653; G0378; G0379

== ENCOUNTER 2020-07-02 16:03 | Outpatient (CLI) | payer OTHER, MEDICAID, SELFPAY ==
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
== END 2020-07-02 17:15 | disposition home or self-care (01) ==
LOC: OB 07-07 12:04
PROVIDERS: Referring Provider Obstetrics & Gynecology; Visit Provider Obstetrics & Gynecology
DX: O24.419 Gestational diabetes mellitus in pregnancy, unspecified control (principal); O13.3 Gestational [pregnancy-induced] hypertension without significant proteinuria, third trimester; O09.523 Supervision of elderly multigravida, third trimester; Z3A.37 37 weeks gestation of pregnancy
CPT/HCPCS: 59025; G0378; G0379

== ENCOUNTER 2020-07-09 17:20 | Outpatient (CLI) | payer OTHER, MEDICAID, SELFPAY ==
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
== END 2020-07-09 18:20 | disposition home or self-care (01) ==
LOC: OB 07-13 11:02
PROVIDERS: Referring Provider Specialist; Visit Provider Specialist
DX: O13.3 Gestational [pregnancy-induced] hypertension without significant proteinuria, third trimester (principal); Z3A.38 38 weeks gestation of pregnancy; O09.523 Supervision of elderly multigravida, third trimester; O24.415 Gestational diabetes mellitus in pregnancy, controlled by oral hypoglycemic drugs
CPT/HCPCS: 59025; G0378; G0379

== ENCOUNTER 2020-07-12 20:32 | Inpatient (IN) | payer OTHER, MEDICAID, SELFPAY ==
[2020-07-12] MEDS: LACTATED RINGERS 1,000 ML 100 ML IV (21:25)
[2020-07-12 21:42] LABS: Add Manual Diff / Slide Review NO; Basophils Absolute Auto 0 /uL (0-100); Basophils Percent Auto 0.4 % (0-2); Eosinophils Absolute Auto 100 /uL (0-450); Eosinophils Percent Auto 0.8 % (2-4); Hematocrit 37.4 % (36-46); Hemoglobin 12.2 g/dL (12.0-16.0); Lymphocytes Absolute Auto 1800 /uL (1100-4500); Mean Corpuscular HGB Conc 32.7 % (30-36); Mean Corpuscular Hemoglobin 29.7 PG (26-34); Mean Corpuscular Volume 90.9 fL (80-100); Monocytes Absolute Auto 800 /uL (0-900); Monocytes Percent Auto 6.8 % (3-14); Neutrophils Absolute Auto 9400 /uL (1500-7000); Platelet Count 358 X10^3/uL (150-400); Red Blood Cell Count 4.12 X10^6/uL (4.0-5.2); Red Cell Distribution Width 15.7 % (11.6-14.8); White Blood Cell Count 12.2 X10^3/uL (4.5-11.0)
[2020-07-12 22:00] LABS: COVID19 -Nasal RAPID Negative (Negative)
[2020-07-12 22:35] LABS: Alanine Aminotransferase 49 IU/L (<35); Albumin 3.4 g/dL (3.5-5.0); Albumin Globulin Ratio 1.1 (1.0-2.8); Alkaline Phosphatase 118 U/L (38-126); Aspartate Aminotransferase 37 IU/L (14-36); BUN Creatinine Ratio 16.1 (6-22); Bilirubin Total 0.2 mg/dL (0.2-1.3); Blood Urea Nitrogen 9 mg/dL (7-17); Calcium 8.3 mg/dL (8.4-10.2); Carbon Dioxide 26 mmol/L (22-32); Chloride 103 mmol/L (98-107); Estimated Glomerular Filt Rate > 60.0 mL/min (>60); Globulin 3.2 g/dL (1.7-4.1); Glucose 144 mg/dL (70-100); HEMOLYSIS < 15 (0-50); Lactate Dehydrogenase 347 U/L (313-618); Potassium 4.2 mmol/L (3.4-5.1); Sodium 133 mmol/L (137-145); Total Protein 6.6 g/dL (6.3-8.2); Uric Acid 5.2 mg/dL (2.5-6.2)
[2020-07-12 22:52] VITALS: BP 161/84
[2020-07-12 23:03] LABS: UR Morphine/Opiate cutoff 300 Negative (Negative); Ur Creatinine 50 (Normal); Ur Specific Gravity 1.025 (Normal); Urine Amphetamines Negative (Negative); Urine Barbiturates Negative (Negative); Urine Benzodiazepines Negative (Negative); Urine Cocaine Negative (Negative); Urine MDMA Negative (Negative); Urine Methadone Negative (Negative); Urine Methamphetamines Negative (Negative); Urine Oxycodone Negative (Negative); Urine Phencyclidine Negative (Negative); Urine Tetrahydrocannabinol Negative (Negative); Urine Tricyclic Antidepressant Negative (Negative); Urine pH 5 (Normal)
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
[2020-07-12] MEDS: NIFEdipine 10 MG CAPSULE PO (23:16)
[2020-07-13] VITALS (9 sets, daily range): BP systolic 124–163; BP diastolic 80–93; PULSE 74–95; RESP 16–24; TEMP 36.4–36.6; O2SAT 93–94
--- NOTE | 2020-07-13 | PATH_ITS ---
[facility] Accession Number: [id number] . 01 Material submitted: . fallopian tube - SEGMENT BILATERAL FALLOPIAN TUBES . 01 Clinical history: . EVAL OF LABOR . 02 Diagnosis: Segments of Bilateral Tubes, Sterilization: Two complete circumferential segments of fallopian tube. MRV 07/17/2020 1348 Local . 02 Electronically signed: . Shannen Roche MD, Pathologist NPI- [id number] . 01 Gross description: . Received in formalin, labeled segment bilateral fallopian tubes consists of two fallopian tubes segments measuring 1.6 cm in length by 0.6 cm in diameter and 2.0 cm in length by 0.6 cm in diameter. The serosa is parekh-pink and smooth. Sectioning reveals a parekh mucosa and a stellate lumen measuring 0.2 cm in diameter. The specimen is serially sectioned and entirely submitted in cassettes A1-A2. ([id number]) /MRV 07/16/2020 1500 Local . 02 Pathologist provided ICD-10: Z30.2 . 02 CPT . 430752 Performed at: 01 [facility] [address] [facility], [place], [place] [id number] MD Wesly Calderon MD Phone: [phone] Performed at: 02 [facility] [address] [place], [place] [id number] MD Shannen Roche MD Phone: [phone]
--- NOTE | 2020-07-13 05:30 | PM.OBPRVD ---
Events: Gestational Diabetes and Induced HTN Labor & Delivery Delivery date: 07/13/20 Intrapartal events: Extended Bradycardia, Intolerance, Acceleration and Deceleration Cervical ripening method: none Induction method: none Delivery monitor: external FHT and external uterine Route of delivery: Indication for instrumentation: nonreassuring FHR tracing Episiotomy description: Right Mediolateral L&D Laceration Description: Perineal - 2nd Degree Delivery repair: vicryl Estimated blood loss (mL): 300 Anesthesia Type: None (nitrous oxide) Complications: shoulder dystocia Narrative: This patient is a 40 year old [id number] who presented in early labor after SROM at home. Her was complicated by uncontrolled gestation diabetes and gestational vs. chronic hypertension, not on medications, and by maternal obesity. The patient progressed rapidly to fully dilated with a tracing with intermittent early decelerations, but reactive and with moderate variability. The patient declined an epidural, and had good pain control with nitrous oxide at bedside. The second stage began with good maternal effort and head descent, with a cat 2 EFM with variable decelerations with pushing. heart rate was 120s-130s audible on external monitor at bedside with moderate variability between pushing, and the patient was encouraged to continue with good effort. With head descent, maternal body habitus and movement with and between pushing significantly complicated external monitoring. A scalp electrode was placed with initial success, but soon displaced due to maternal movement and external monitoring was resumed. The patient continued to have good pushing effort, but the heart rate descended to the 60s with a subsequent push and recovered only to the 80s between contractions, with station +3. I discussed with the patient and her that the heart rate necessitated emergent delivery, and we discussed the alternatives of emergent section under local anesthetic given timing of availability of the OR crew, vs operative delivery with a vacuum. We discussed that given her poorly controlled diabetes and likely large weight, the baby was at a high risk of failed vacuum attempted delivery and of shoulder dystocia, and they vocalized understanding. The bladder was drained via straight catheterization, and a kiwi vacuum was applied to the vertex 2cm anterior to the posterior fontanelle. With the next contraction, pressure was increased into the green, and traction applied downward and progressively upward in the usual fashion. Good head descent was achieved with this pull, and the vertex brought to . 2 popoffs occured at the time of , and delivery of the head achieved with a modified Ritgens maneuver. At this point, the anterior (left) shoulder did not deliver with gentle downward traction. Corkscrew maneuvers were attempted without success, and the posterior arm was flexed against the chest but due to maternal tissue dystocia, delivery of the posterior arm could not be achieved. A right mediolateral episiotomy was cut, and corkscrew maneuvers and then delivery of the posterior arm were attempted, without success. A second provider was present and attempted the same maneuvers, without success. I then made a final attempt at the corkscrew maneuvers before moving on to fracturing the collarbone to facilitate delivery, and this attempt was successful. A loose body cord at the shoulders was reduced during delivery. The cord was immediately clamped and cut, and the baby handed off to the waiting pediatric team. A portion of the cord was double clamped to facilitate cord pH sampling, and the placenta delivered spontaneously and intact shortly thereafter. The placenta had a three vessel cord, but was notable for significant calcifications. The mediolateral episiotomy did not extend, and there was no other laceration. The episiotomy was repaired with 3-0 vicryl in the usual fashion. The patient received 30u pitocin in 1L LR @250ccs/hr after delivery, per the usual protocol, but lochia was moderate and the fundus was firm. Baby 1: Infant gender: Male Presentation: vertex Position: Right Occiput Anterior Placenta delivery description: Spontaneous Cord Vessel Description: 3 Vessels score (1 min): 0 score (5 min): 4 score (10 min): 6 Plan for aftercare: Baby boy is being transferred to [facility], but maternal wellbeing and blood pressure control needs to be assured before she is stable for transport. We will continue to closely monitor.
[2020-07-13] MEDS: NIFEdipine 30 MG TAB ER PO (06:30)
[2020-07-13] MEDS: ACETAMINOPHEN 325 MG TABLET 650 MG PO ×2 (07:10→18:08)
[2020-07-13] MEDS: OXYCODONE IR 10 MG TABLET PO (07:10)
[2020-07-13] MEDS: DERMOPLAST SPRAY 20% 60 ML 1 SPRAY TOP (07:10)
--- NOTE | 2020-07-13 09:57 | PM.PREOP ---
Pre-operative Note COVID-19 COVID-19 status: Negative Result date/Date tested (Pos, Neg/Pending): 07/12/20 Interval Note History & Physical reviewed/Exam performed by Physician: Yes Changes to H&P: Yes H&P completed within 30 days and has changed as indicated here:: Status post vaginal delivery
[2020-07-13] MEDS: OXYTOCIN PREMIX 30 UNIT/500 ML PLAST..BAG 500 UNIT IV (09:58)
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
[2020-07-13] MEDS: LACTATED RINGERS 1,000 ML 100 ML IV (10:00)
[2020-07-13] MEDS: CEFAZOLIN 2 GM/100 ML FROZ.PIGGY IV (10:42)
--- NOTE | 2020-07-13 11:00 | SUR.OPER ---
Supine on padded OR bed, head on pillow, arms secured on padded arm boards at <90 degrees abduction, legs uncrossed, safety belt at thigh, tape over blanket over lower legs.
[2020-07-13] MEDS: BUPIVACAINE 0.5% W/ EPI (PF) 30 ML VIAL INJ (11:04)
--- NOTE | 2020-07-13 11:08 | SUR.OPER ---
GLASSES IN LABELED BAG TO PACU WITH PATIENT
--- NOTE | 2020-07-13 11:36 | PM.OP.1 ---
Operative Date/Time/Diagnoses Date of procedure: 07/13/20 Time of procedure: 11:37 Pre-op diagnosis: Sterilization Post-op diagnosis: same Procedure & Clinicians Procedure: Mini-laparotomy bilateral tubal ligation Same procedure as scheduled: Yes Indications: 40-year-old para 3 requesting sterilization Surgeon: Ary Armenta Click Yes if Unassisted: Yes Anesthesia Type: General Operative Notes Findings: Normal tubes and ovaries bilaterally Closure Type: primary Specimen(s): other (Bilateral tubal segment) Estimated Blood Loss (mL): 1 Blood products transfused: none Procedure in detail: Patient was brought to the operating room where she was placed in supine position and she underwent general anesthesia. She was prepped and draped in the usual sterile fashion. 2 g of Ancef were in prior to beginning of the case. Warming was with blankets. Pulsatile stockings in place and functional. The patient had urinated prior to coming to the operating room. A check system was reviewed with staff in the room prior to beginning the case. The area of the umbilical incision was injected with 0.5% Marcaine with epinephrine. The incision was carried down the fascial layer which was incised transversely. The perineum was entered sharply. There did not appear to be any damage with entering the abdomen. The left fallopian tube was grasped with a Akbar and tied off x2 with 0 plain suture. The intervening section was removed with scissors. Adequate hemostasis was noted. The tube was injected with Marcaine with epinephrine. The tube was allowed to fall back into the abdomen. Same procedure was performed on the right side. The fascial layer was repaired with 0 Vicryl suture. The skin was closed with 4-0 Monocryl. The patient went to recovery room in stable condition. Counts of instruments and laps were correct. Complications: none Post-operative Condition: stable Disposition: other (Back to Labor and delivery) Plan for aftercare: Routine and tubal ligation care
--- NOTE | 2020-07-13 11:51 | SUR.PHASEI ---
report called to BC; informed them of Ketoralac given, dose, and time.
--- NOTE | 2020-07-13 11:55 | SUR.PHASEI ---
arousing, responsive to voice. When asked how she was, she stated, I'm still very tired. Informed patient that she is doing well and that she could sleep a little longer before returning to the . VSS
--- NOTE | 2020-07-13 12:23 | SUR.PHASEI ---
1210 Preparing to transfer patient; she stated that she needed to void. Declined bedpan and preferred to wait until transferred. Denies pain/nausea. 1215 to BR 4. bed down and locked, call light within reach. BC RN checked dressing (CDI) and pad. No questions from patient or staff.
[2020-07-13] MEDS: LABETALOL 100 MG TABLET PO (15:15)
--- NOTE | 2020-07-13 16:57 | P.DS_ITS ---
Discharge Providers Provider Date of admission: 07/12/20 20:32 Discharge Date: 07/13/20 Primary care physician: Doctor Alva MD Consults: 07/14/20 05:26 Consult to [employer] Professor Routine Comment: Discharge provider: Ary Armenta MD Summary Hospital Course Date Patient Seen: 07/13/20 Time Patient Seen: 16:58 Procedures: Vacuum assisted vaginal delivery, repair of episiotomy, mini- laparotomy bilateral tubal ligation Hospital Course: Patient arrived on Labor and delivery in active labor. With pushing there was deceleration so she had an assisted vaginal delivery by vacuum with right mediolateral episiotomy to assist with shoulder dystocia. Patient did well post . She underwent a mini-laparotomy tubal ligation. Patient denies headaches, scotomata, epigastric pain. She did have gradually increasing blood pressures treated with nifedipine followed by labetalol. Patient does not have any evidence for preeclampsia. Patient's lochia is minimal. She is not needing anything for pain. Due to the fact the baby was transported to [place] the patient is requesting early discharge to be with her infant. Patient is anxious to start her Wellbutrin for known depression. Peripartum Data Delivery Method: Assisted Delivery (Vacuum assisted) Episiotomy description: Right Mediolateral complications: none [place] 1: Gender: Male Disposition of : NICU (Transferred to the [facility] intubated) Discharge Diagnosis (1) Vaginal delivery: Status: Acute (2) Encounter for sterilization: Status: Acute (3) Gestational hypertension: Status: Acute (4) Gestational diabetes mellitus (GDM): Status: Acute (5) Depression: Status: Acute Status at Discharge Cognitive/behavioral status at discharge: oriented Functional status at discharge: independent ambulation Overall status at discharge: patient is progressing back to baseline Time Spent with Patient Time attestation: Total time spent providing and/or coordinating discharge services: Time spent: Less than 30 minutes Objective Labs Result Diagrams: 07/12/20 21:10 07/12/20 22:05 Labs: Laboratory Results - last 24 hr 07/12/20 07/12/20 07/12/20 20:55 21:10 21:10 WBC 12.2 H RBC 4.12 Hgb 12.2 Hct 37.4 MCV 90.9 MCH 29.7 MCHC 32.7 RDW 15.7 H Plt Count 358 Neut % (Auto) 77.0 H Lymph % (Auto) 15.0 L [place] % (Auto) 6.8 Eos % (Auto) 0.8 L Baso % (Auto) 0.4 Neut # (Auto) 9400 H Lymph # (Auto) 1800 [place] # (Auto) 800 Eos # (Auto) 100 Baso # (Auto) 0 Sodium Potassium Chloride Carbon Dioxide BUN Creatinine Estimated GFR BUN/Creatinine Ratio Glucose Uric Acid Calcium Total Bilirubin AST ALT Alkaline Phosphatase Lactate Dehydrogenase Total Protein Albumin Globulin Albumin/Globulin Ratio U Opiates 300ng/mL cut Ur Oxycodone Screen Urine Methadone Screen Ur Barbiturates Screen U Tricyclic Antidepress Ur Phencyclidine Scrn Ur Amphetamines Screen U Methamphetamines Scrn Ur MDMA Scrn (Ecstasy) U Benzodiazepines Scrn Urine Cocaine Screen U Marijuana (THC) Screen SARS-CoV-2 (PCR) Negative Blood Type A Positive Antibody Screen Negative 07/12/20 07/12/20 07/12/20 21:10 21:55 22:05 WBC Cancelled RBC Cancelled Hgb Cancelled Hct Cancelled MCV Cancelled MCH Cancelled MCHC Cancelled RDW Cancelled Plt Count Cancelled Neut % (Auto) Cancelled Lymph % (Auto) Cancelled [place] % (Auto) Cancelled Eos % (Auto) Cancelled Baso % (Auto) Cancelled Neut # (Auto) Cancelled Lymph # (Auto) Cancelled [place] # (Auto) Cancelled Eos # (Auto) Cancelled Baso # (Auto) Cancelled Sodium Potassium Chloride Carbon Dioxide BUN Cancelled Creatinine Cancelled Estimated GFR Cancelled BUN/Creatinine Ratio Cancelled Glucose Uric Acid Cancelled Calcium Total Bilirubin AST Cancelled ALT Alkaline Phosphatase Lactate Dehydrogenase Total Protein Albumin Globulin Albumin/Globulin Ratio U Opiates 300ng/mL cut Negative Ur Oxycodone Screen Negative Urine Methadone Screen Negative Ur Barbiturates Screen Negative U Tricyclic Antidepress Negative Ur Phencyclidine Scrn Negative Ur Amphetamines Screen Negative U Methamphetamines Scrn Negative Ur MDMA Scrn (Ecstasy) Negative U Benzodiazepines Scrn Negative Urine Cocaine Screen Negative U Marijuana (THC) Screen Negative SARS-CoV-2 (PCR) Blood Type Antibody Screen 07/12/20 22:05 WBC RBC Hgb Hct MCV MCH MCHC RDW Plt Count Neut % (Auto) Lymph % (Auto) [place] % (Auto) Eos % (Auto) Baso % (Auto) Neut # (Auto) Lymph # (Auto) [place] # (Auto) Eos # (Auto) Baso # (Auto) Sodium 133 L Potassium 4.2 Chloride 103 Carbon Dioxide 26 BUN 9 Creatinine 0.56 Estimated GFR > 60.0 BUN/Creatinine Ratio 16.1 Glucose 144 H Uric Acid 5.2 Calcium 8.3 L Total Bilirubin 0.2 AST 37 H ALT 49 H Alkaline Phosphatase 118 Lactate Dehydrogenase 347 Total Protein 6.6 Albumin 3.4 L Globulin 3.2 Albumin/Globulin Ratio 1.1 U Opiates 300ng/mL cut Ur Oxycodone Screen Urine Methadone Screen Ur Barbiturates Screen U Tricyclic Antidepress Ur Phencyclidine Scrn Ur Amphetamines Screen U Methamphetamines Scrn Ur MDMA Scrn (Ecstasy) U Benzodiazepines Scrn Urine Cocaine Screen U Marijuana (THC) Screen SARS-CoV-2 (PCR) Blood Type Antibody Screen Exam Vital Signs (past 8 hours): Current blood pressure 154/91, pulse of 80, temperature 97.8?- 07/13/20 11:30 07/13/20 11:35 07/13/20 11:40 Temperature 97.5 F L Pulse Rate 95 H 83 81 Respiratory Rate 20 24 24 Blood Pressure 124/80 141/82 H 146/83 H Pulse Oximetry 93 94 94 07/13/20 11:45 07/13/20 11:50 07/13/20 11:55 Temperature Pulse Rate 80 77 76 Respiratory Rate 24 22 23 Blood Pressure 156/86 H 161/92 H 158/89 H Pulse Oximetry 93 93 94 07/13/20 12:10 Temperature Pulse Rate 74 Respiratory Rate 22 Blood Pressure 163/93 H Pulse Oximetry 93 Oxygen Delivery Method Room Air Narrative Exam Narrative: HEENT exam within normal limits. Abdomen is soft, with minimal tenderness. Umbilical incision dressing is dry. Uterus is firm, at U, nontender. Mild lochia. Extremities without edema and nontender. DTRs are normal. Patient is Rh positive, she received Tdap in the 3rd trimester. She is rubella nonimmune so will receive the MMR vaccine prior to discharge. Discharge Plan Discharge Plan Patient Disposition: Home Discharge orders & Medications Prescriptions: New bupropion HCl [Wellbutrin SR] 100 mg Tablet Sustained-Release 12 Hr 100 mg PO BID Qty: 60 RF: 0 labetalol 200 mg tablet 200 mg PO BID Qty: 60 RF: 0 Continued (DME) Double Electric Breast Pump Qty: 1 RF: 0 prenat.vits,celena,qff-oibt-mgdee Tablet 1 tab PO DAILY Qty: 30 RF: 6 albuterol sulfate 90 mcg/actuation aerosol powdr breath activated 2 puff INHALATION Q6H PRN (Reason: Wheezing) RF: 0 Discontinued (DME) lancets Misc See Rx Instructions .ROUTE .MEDSUPPLY Qty: 120 RF: 3 (DME) blood sugar diagnostic [Blood Glucose Test] Strip See Rx Instructions .ROUTE .MEDSUPPLY Qty: 120 RF: 3 metformin 500 mg tablet 500 mg PO BID Qty: 60 RF: 3 Follow up/Referrals: Ary Armenta MD [Physician] - 2 Weeks (Blood pressure check) Doctor Calle MD [Primary Care Provider] - Diet/Activity/Treatments Diet: Regular Activity: Nothing in vagina for 4 weeks Skin/Wound/Dressing Care Report to your healthcare provider any signs of infection, such as:: chills, fever and increased pain Discharge Data Primary Care Provider: Doctor Alva
[2020-07-13] MEDS: buPROPion SR 100 MG TAB PO (18:04)
[2020-07-13] MEDS: LABETALOL 100 MG TABLET 200 MG PO (18:05)
== END 2020-07-13 18:47 | disposition home or self-care (01) | DRG 541 ==
PROVIDERS: Specialist; Admitting Provider Obstetrics & Gynecology; Referring Provider Obstetrics & Gynecology; Visit Provider Obstetrics & Gynecology
PROC: 0UB70ZZ Excision of Bilateral Fallopian Tubes, Open Approach (ICD-10-PCS; CPT 58605; principal; 2020-07-13 11:00)
DX: O24.425 Gestational diabetes mellitus in childbirth, controlled by oral hypoglycemic drugs (principal); O13.4 Gestational [pregnancy-induced] hypertension without significant proteinuria, complicating childbirth; E66.01 Morbid (severe) obesity due to excess calories; Z30.2 Encounter for sterilization; O66.0 Obstructed labor due to shoulder dystocia; O99.214 Obesity complicating childbirth; O76 Abnormality in fetal heart rate and rhythm complicating labor and delivery; Z3A.39 39 weeks gestation of pregnancy; Z37.0 Single live birth; Z79.84 Long term (current) use of oral hypoglycemic drugs; O99.344 Other mental disorders complicating childbirth; F32.9 Major depressive disorder, single episode, unspecified; Z20.822 Contact with and (suspected) exposure to COVID-19
CPT/HCPCS: 36415; 58605; 59409; 80053; 80305; 83615; 84550; 85025; 86850; 86900; 86901; 87635; G0379; J0690; J1885; J2405; J2590; J2704; J3010

== ENCOUNTER → 2022-03-04 09:04 | Outpatient (CLI) | payer OTHER, MEDICAID, SELFPAY ==
[2022-03-04 11:16] LABS: Hematocrit 42.2 % (36-46); Hemoglobin 14.5 g/dL (12.0-16.0); Mean Corpuscular HGB Conc 34.3 % (30-36); Mean Corpuscular Hemoglobin 30.6 PG (26-34); Mean Corpuscular Volume 89.1 fL (80-100); Platelet Count 352 X10^3/uL (150-400); Red Blood Cell Count 4.73 X10^6/uL (4.0-5.2); Red Cell Distribution Width 13.8 % (11.6-14.8); White Blood Cell Count 10.1 X10^3/uL (4.5-11.0)
[2022-03-04 11:45] LABS: Alanine Aminotransferase 23 IU/L (<35); Albumin 3.8 g/dL (3.5-5.0); Albumin Globulin Ratio 1.4 (1.0-2.8); Alkaline Phosphatase 62 U/L (38-126); Aspartate Aminotransferase 21 IU/L (14-36); BUN Creatinine Ratio 11.3 (6-22); Bilirubin Total 0.4 mg/dL (0.2-1.3); Blood Urea Nitrogen 9 mg/dL (7-17); Calcium 8.1 mg/dL (8.4-10.2); Carbon Dioxide 27 mmol/L (22-32); Chloride 103 mmol/L (98-107); Cholesterol 156 mg/dL (140-199); Estimated Glomerular Filt Rate > 60 mL/min (>60); Globulin 2.8 g/dL (1.7-4.1); Glucose 145 mg/dL (70-100); HDL Cholesterol 36 mg/dL (40-60); HEMOLYSIS < 15 (0-50); LDL Cholesterol Calculated 99 mg/dL (<100); Potassium 4.6 mmol/L (3.4-5.1); Sodium 136 mmol/L (137-145); Total Protein 6.6 g/dL (6.3-8.2); Triglycerides 104 mg/dL (35-150)
== END ==
PROVIDERS: Family Provider Registered Nurse Diabetes Educator; PCP Registered Nurse Diabetes Educator; Referring Provider Registered Nurse Diabetes Educator; Visit Provider Registered Nurse Diabetes Educator
DX: R03.0 Elevated blood-pressure reading, without diagnosis of hypertension (principal); Z86.32 Personal history of gestational diabetes; Z87.59 Personal history of other complications of pregnancy, childbirth and the puerperium
CPT/HCPCS: 36415; 80053; 80061; 81025; 83036; 84443; 85027

== ENCOUNTER → 2022-05-03 17:28 | Outpatient (CLI) | payer OTHER, MEDICAID, SELFPAY ==
[2022-05-03 18:25] LABS: C-Reactive Protein Quant < 0.5 mg/dL (<1.0)
[2022-05-03 18:53] LABS: Erythrocyte Sedimentation Rate 6 MM/HR (0-20)
[2022-05-03 19:09] LABS: Rheumatoid Factor < 8.6 IU/mL (<12.0)
[2022-05-06 13:42] LABS: ANA Screen, IFA Negative (.)
[2022-05-06 21:37] LABS: CCP Antibodies IgG/IgA 6 units (0-19)
== END ==
PROVIDERS: Family Provider Registered Nurse Diabetes Educator; PCP Registered Nurse Diabetes Educator; Referring Provider Registered Nurse Diabetes Educator; Visit Provider Registered Nurse Diabetes Educator
DX: M25.50 Pain in unspecified joint (principal); M79.10 Myalgia, unspecified site
CPT/HCPCS: 36415; 85651; 86038; 86140; 86200; 86430

== ENCOUNTER → 2022-06-21 11:49 | Outpatient (CLI) | payer OTHER, MEDICAID, SELFPAY ==
--- NOTE | 2022-06-21 11:50 | DI.MG.S_ITS ---
BILATERAL DIGITAL SCREENING MAMMOGRAM 3D/2D WITH CAD: 06/21/2022 CLINICAL: Routine screening. Baseline exam. No prior exams were available for comparison. There are scattered areas of fibroglandular density in both breasts (category b / 25%-50% glandular tissue). Current study was also evaluated with a Computer Aided Detection (CAD) system. No significant masses, calcifications, or other findings are seen in either breast. IMPRESSION: NEGATIVE There is no mammographic evidence of malignancy. A 1 year screening mammogram is recommended. Based on the Tyrer Cuzick model (a risk assessment model) the patient's lifetime risk is 10.6% and her 10 year risk is 1.7%. According to the ACR, ACS, and NCCN guidelines, an annual breast MRI exam along with mammogram is recommended if the patient's lifetime risk is 20% or greater. This exam was interpreted at Station ID: [id number]. NOTE: For mammograms, a report in lay terms will be sent to the patient. Approximately 15% of breast malignancies will not be visualized mammographically. In the management of a palpable breast mass, a negative mammogram must not discourage biopsy of a clinically suspicious lesion. Electronically Signed By: Jose al/marvin:06/21/2022 12:35:45 letter sent: Normal Exam ACR BI-RADS Category 1: Negative 3341F
== END ==
PROVIDERS: Family Provider Registered Nurse Diabetes Educator; PCP Registered Nurse Diabetes Educator; Referring Provider Registered Nurse Diabetes Educator; Visit Provider Registered Nurse Diabetes Educator
DX: Z12.31 Encounter for screening mammogram for malignant neoplasm of breast (principal)
CPT/HCPCS: 77063; 77067

== ENCOUNTER → 2022-08-09 08:27 | Outpatient (CLI) | payer OTHER, MEDICAID, SELFPAY ==
[2022-08-09 09:10] LABS: Influenza A - CEPHEID Flu A NEGATIVE (NEGATIVE); Influenza B - CEPHEID Flu B NEGATIVE (NEGATIVE); Respiratory Syncytial Virus Negative (Negative)
[2022-08-09 09:11] LABS: COVID-19 CEPHEID 4-PLEX PCR Negative (Negative)
== END ==
PROVIDERS: Family Provider Registered Nurse Diabetes Educator; PCP Registered Nurse Diabetes Educator; Visit Provider Nurse Practitioner Family
DX: J06.9 Acute upper respiratory infection, unspecified (principal); J02.9 Acute pharyngitis, unspecified
CPT/HCPCS: 0241U; 87070

== ENCOUNTER 2023-03-11 11:57 | Emergency (ER) | payer OTHER, MEDICAID, SELFPAY ==
[2023-03-11 12:03] VITALS: BP 137/74; PULSE 72; RESP 15; TEMP 36.7; O2SAT 98; BMI 38.0
--- NOTE | 2023-03-11 12:07 | DI.RAD.S_ITS ---
PROCEDURE: XR KNEE RT 3V INDICATIONS: fall with knee pain TECHNIQUE: 3 views of the knee were acquired. COMPARISON: [facility], CR, XR KNEE ARTHRITIC SERIES BI, 07/08/2022, 9:35. FINDINGS: Bones: There is a fracture involving the lateral aspect of patella with minimal displacement. No dislocations. No suspicious bony lesions. 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 Soft tissues: Moderate to large joint effusion. No suspicious soft tissue calcifications. IMPRESSION: 1. Minimally displaced patellar fracture. 2. [id number] knee joint effusion. Dictated by: Nupur Mishra M.D. on 03/11/2023 at 13:17 Approved by: Nupur Mishra M.D. on 03/11/2023 at 13:20
[2023-03-11 12:34] VITALS: PULSE 62
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
[2023-03-11] MEDS: HYDROCODONE/ACET 5/325 TABLET 1 TAB PO (12:56)
[2023-03-11] MEDS: KETOROLAC 30 MG/ML VIAL 15 MG IM (12:57)
[2023-03-11] MEDS: LIDOCAINE PATCH 1 EACH ADH..PATCH TOP (12:57)
[2023-03-11 13:56] VITALS: BP 138/68; PULSE 68; RESP 16; O2SAT 98
== END 2023-03-11 13:58 | disposition home or self-care (01) ==
PROVIDERS: Emergency Provider Nurse Practitioner Critical Care Medicine; Family Provider Registered Nurse Diabetes Educator; PCP Registered Nurse Diabetes Educator
DX: S82.021A Displaced longitudinal fracture of right patella, initial encounter for closed fracture (principal); M25.461 Effusion, right knee
CPT/HCPCS: 73562; 96372; 99283; 99284; J1885

== ENCOUNTER 2023-03-19 14:29 | Emergency (ER) | payer OTHER, MEDICAID, SELFPAY ==
[2023-03-19 14:34] VITALS: BP 114/67; PULSE 84; RESP 18; TEMP 36.6; O2SAT 98; BMI 37.9
[2023-03-19 15:48] VITALS: BP 155/70; PULSE 97; RESP 17; O2SAT 100
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
== END 2023-03-19 16:18 | disposition home or self-care (01) ==
PROVIDERS: Emergency Provider Physician Assistant Medical; Family Provider Registered Nurse Diabetes Educator; PCP Registered Nurse Diabetes Educator
DX: S82.001D Unspecified fracture of right patella, subsequent encounter for closed fracture with routine healing (principal)
CPT/HCPCS: 99281

== ENCOUNTER → 2023-04-07 09:24 | Outpatient (CLI) | payer OTHER, MEDICAID, SELFPAY ==
[2023-04-07 10:45] LABS: Influenza A - CEPHEID Flu A NEGATIVE (NEGATIVE); Influenza B - CEPHEID Flu B NEGATIVE (NEGATIVE); Respiratory Syncytial Virus Negative (Negative)
[2023-04-07 11:01] LABS: COVID-19 CEPHEID 4-PLEX PCR POSITIVE (Negative)
== END ==
PROVIDERS: Family Provider Registered Nurse Diabetes Educator; PCP Registered Nurse Diabetes Educator; Visit Provider Nurse Practitioner Family
DX: R05.9 Cough, unspecified (principal); R09.81 Nasal congestion
CPT/HCPCS: 0241U; C9803

== ENCOUNTER → 2023-06-17 09:10 | Outpatient (CLI) | payer OTHER, MEDICAID, SELFPAY ==
[2023-06-17 09:56] LABS: Mean Corpuscular HGB Conc 34.2 % (30-36); Mean Corpuscular Hemoglobin 30.9 PG (26-34); Mean Corpuscular Volume 90.6 fL (80-100); Platelet Count 352 X10^3/uL (150-400); Red Blood Cell Count 4.53 X10^6/uL (4.0-5.2); Red Cell Distribution Width 13.9 % (11.6-14.8); White Blood Cell Count 8.7 X10^3/uL (4.5-11.0)
[2023-06-17 10:25] LABS: Hemoglobin A1C% w Est Avg Glu 5.9 % (4.0-6.0)
[2023-06-17 10:38] LABS: Alanine Aminotransferase 14 IU/L (<35); Albumin 3.4 g/dL (3.5-5.0); Albumin Globulin Ratio 1.3 (1.0-2.8); Alkaline Phosphatase 53 U/L (38-126); Aspartate Aminotransferase 17 IU/L (14-36); BUN Creatinine Ratio 15.5 (6-22); Bilirubin Total 0.6 mg/dL (0.2-1.3); Blood Urea Nitrogen 11 mg/dL (7-17); Calcium 8.7 mg/dL (8.4-10.2); Carbon Dioxide 28 mmol/L (22-32); Chloride 104 mmol/L (98-107); Cholesterol 122 mg/dL (140-199); Estimated Glomerular Filt Rate > 60 mL/min (>60); Globulin 2.6 g/dL (1.7-4.1); Glucose 113 mg/dL (70-100); HDL Cholesterol 33 mg/dL (40-60); HEMOLYSIS < 15 (0-50); LDL Cholesterol Calculated 77 mg/dL (<100); Potassium 4.3 mmol/L (3.4-5.1); Sodium 136 mmol/L (137-145); Triglycerides 58 mg/dL (35-150)
[2023-06-17 11:05] LABS: TSH w/ Reflex to FT4 0.56 uIU/mL (0.47-4.68)
[2023-06-17 15:30] LABS: Microalbumin Urine Random 2.5 mg/dL (0-1.6)
[2023-06-17 15:32] LABS: Creatinine Urine Random 215.3 mg/dL; Microalbumi Creatinin Ratio Ur 11.6 ug/mg CR (<30)
== END ==
PROVIDERS: Family Provider Registered Nurse Diabetes Educator; PCP Registered Nurse Diabetes Educator; Referring Provider Registered Nurse Diabetes Educator; Visit Provider Registered Nurse Diabetes Educator
DX: E11.9 Type 2 diabetes mellitus without complications (principal); I10 Essential (primary) hypertension
CPT/HCPCS: 36415; 80053; 80061; 82043; 82570; 83036; 84443; 85027

== ENCOUNTER → 2023-08-26 10:20 | Outpatient (CLI) | payer OTHER, MEDICAID, SELFPAY ==
--- NOTE | 2023-08-26 10:21 | DI.US.S_ITS ---
LIMITED ULTRASOUND OF LEFT BREAST: 08/26/2023 CLINICAL: Inverted left nipple with palpable lump. Comparison is made to exams dated: 08/26/2023 mammogram and 06/21/2022 mammogram - [facility]. Color flow and real-time ultrasound of the left breast retroareolar were performed. Castellon scale images of the real-time examination were reviewed. There is an oval lymph node with uniform cortical thickening up to 4mm in the left axilla. This oval lymph node displays fatty hilum. There also is a 1 cm x 0.6 cm x 0.9 cm oval mass in the left breast central to the nipple in the retroareolar region. This oval mass is hypoechoic. This correlates as palpated, with mammography findings, and area of clinical concern. Color flow imaging demonstrates that there is an adjacent vascularity. IMPRESSION: SUSPICIOUS OF MALIGNANCY The oval lymph node with uniform cortical thickening in the left axilla is consistent with an enlarged lymph node and is at a low suspicion for malignancy. An ultrasound guided biopsy is recommended. The 1 cm x 0.6 cm x 0.9 cm oval mass in the left breast central to the nipple in the retroareolar region is suspicious of malignancy. An ultrasound guided biopsy is recommended. Findings and recommendations were discussed with the patient by Dr. Weiner during today's examination. This exam was interpreted at Station ID: [id number]. Electronically Signed By: Curry Barbosa M.D. aty/:08/26/2023 12:12:31 letter sent: Biopsy Required Ultrasound BI-RADS: 4a Low suspicion for malignancy
--- NOTE | 2023-08-26 10:21 | DI.MG.S_ITS ---
BILATERAL DIGITAL DIAGNOSTIC MAMMOGRAM 3D/2D: 08/26/2023 CLINICAL: Left breast lump. Comparison is made to exam dated: 06/21/2022 mammogram - [facility]. There are scattered areas of fibroglandular density in both breasts (category b / 25%-50% glandular tissue). There is a focal asymmetry in the left breast central to the nipple in the retroareolar region. This is more prominent and correlates as palpated and with area of clinical concern described as new nipple inversion that can be everted using manual pressure. However, the nipple will return to inverted state afterwards. Patient reports that new palpable mass in the retroareolar region that she noticed after noticing nipple abnormality. There is minimal nipple inversion associated with the focal asymmetry. No other significant masses, calcifications, or other findings are seen in either breast. IMPRESSION: INCOMPLETE: NEEDS ADDITIONAL IMAGING EVALUATION The subtle focal asymmetry with adjacent nipple inversion in the left breast is indeterminate. An ultrasound is recommended for further evaluation and is scheduled to immediately follow this examination. Based on the Tyrer Cuzick model (a risk assessment model) the patient's lifetime risk is 10.5% and her 10 year risk is 1.8%. According to the ACR, ACS, and NCCN guidelines, an annual breast MRI exam along with mammogram is recommended if the patient's lifetime risk is 20% or greater. This exam was interpreted at Station ID: [id number]. NOTE: For mammograms, a report in lay terms will be sent to the patient. Approximately 15% of breast malignancies will not be visualized mammographically. In the management of a palpable breast mass, a negative mammogram must not discourage biopsy of a clinically suspicious lesion. Electronically Signed By: Curry Barbosa M.D. aty/:08/26/2023 12:07:24 ACR BI-RADS Category 0: Incomplete 3340F
== END ==
LOC: MAMMO 10:20
PROVIDERS: Family Provider Registered Nurse Diabetes Educator; PCP Registered Nurse Diabetes Educator; Referring Provider Registered Nurse Diabetes Educator; Visit Provider Registered Nurse Diabetes Educator
DX: R92.8 Other abnormal and inconclusive findings on diagnostic imaging of breast (principal); N63.25 Unspecified lump in the left breast, overlapping quadrants; R92.323 Mammographic fibroglandular density, bilateral breasts
CPT/HCPCS: 76642; 77066; G0279

== ENCOUNTER → 2023-09-13 13:43 | Outpatient (CLI) | payer OTHER, MEDICAID, SELFPAY ==
--- NOTE | 2023-09-13 | DI.US.S_ITS ---
PROCEDURE: US AXILLARY ONLY LT COMPARISON: None. INDICATIONS: LEFT AXILLA LYMPHADENOPATHY - EVALUATE FOR BIOPSY FINDINGS: IMPRESSION: Dictated by: Mariama Weiner M.D. on 09/13/2023 at 17:13 Approved by: Mariama Weiner M.D. on 09/13/2023 at 17:13
--- NOTE | 2023-09-13 | PATH_ITS ---
[facility] Accession Number: [id number] No. of containers..01 Tissue . 01 Material submitted: . breast - LEFT BREAST MASS 6:00 RETRO . 01 Diagnosis: LEFT BREAST MASS, 6 O'CLOCK, RETRO; ULTRASOUND-GUIDED CORE BIOPSIES: Benign breast parenchyma with mild duct ectasia and multifocal periductal and stromal inflammation, focally chronic-active, please see microscopic description. Negative for granulomatous inflammation. Negative for in situ or invasive malignancy. MRV 09/19/2023 1506 Local . 01 Electronically signed: . Karla Prado MD, Pathologist NPI- [id number] . 01 Gross description: . Received one formalin-filled container, labeled with the patient's name, and labeled LT breast retro 6 o'clock, the specimen is received with plastic filter in container, sample loose in container, and consists of multiple yellow-parekh pieces of soft tissue which range in size from 0.2 x 0.2 x 0.1 cm to 1.7 x 0.4 x 0.3 cm. All fragments are totally submitted in one cassette. . Possible collection date and time, per requisition: 09/13/2023 at 1511. Total fixation time: Approximately 12 hours. ([facility]:[id number]) /MRV 09/14/2023 0849 Local . 01 Microscopic: . Microscopic examination reveals focal duct ectasia and multifocal dense inflammatory aggregates, composed of mixed acute inflammatory cells (neutrophils) and chronic inflammatory cells (lymphocytes, plasma cells, histiocytes, and rare multinucleated cells). Well-formed granulomas are not seen. Polarized refractile material is not present. . Due to the presence of inflammation, special stains for fungal and mycobacterial organisms have been performed, as follows: PAS is negative for fungal organisms, with appropriate positive control. AFB is negative for mycobacterial organisms, with appropriate positive control, and Gram stain is also negative (this result does not favor the possibility of cystic neutrophilic granulomatous inflammation). . In summary, the findings overall are nonspecific and support mastitis, nonspecific type. . In addition, p63 and Myosin immunostains are performed to rule out the possibility of infiltrating malignancy. These immunostains confirm the presence of myoepithelial and basal cell layer, supporting benign breast parenchyma. . Clinical and radiologic correlation is recommended. . As part of ongoing quality engineer medical device, this case is also reviewed by [facility] pathologist, Dr. Kendra Marquez, who agrees with the interpretation. . * This test was developed and its performance characteristics determined by [facility]. It has not been cleared or approved by the U.S. Food and Drug Administration. The FDA has determined that such clearance or approval is not necessary. This test is used for clinical purposes. It should not be regarded as investigational or for research. . 01 Pathologist provided ICD-10: N63.20 . 01 CPT . 066331, [id number], H80864, 985187, 847926, 015461 Specimen Comment: A courtesy copy of this report has been sent to [phone] Performed at: 01 [facility] [address] [place] [address], [place], [place] [id number] MD Wesly Calderon MD Phone: [phone]
--- NOTE | 2023-09-13 13:44 | DI.MG.S_ITS ---
UNILATERAL LEFT DIGITAL DIAGNOSTIC MAMMOGRAM 3D/2D POST-PROCEDURE IMAGING FOR MARKER PLACEMENT: 09/13/2023 CLINICAL: Post left breast ultrasound biopsy, clip placement imaging. Comparison is made to exams dated: 08/26/2023 ultrasound, 08/26/2023 mammogram, and 06/21/2022 mammogram - [facility]. There are scattered areas of fibroglandular density in the left breast (category b / 25%-50% glandular tissue). There is a marker clip in the appropriate position in the left breast central to the nipple in the retroareolar region. This marker clip placement is at the biopsy site. IMPRESSION: POST PROCEDURE MAMMOGRAM FOR MARKER PLACEMENT There was a successful marker clip placement in the left breast central to the nipple in the retroareolar region. Based on the Tyrer Cuzick model (a risk assessment model) the patient's lifetime risk is 10.5% and her 10 year risk is 1.8%. According to the ACR, ACS, and NCCN guidelines, an annual breast MRI exam along with mammogram is recommended if the patient's lifetime risk is 20% or greater. This exam was interpreted at Station ID: [id number]. NOTE: For mammograms, a report in lay terms will be sent to the patient. Approximately 15% of breast malignancies will not be visualized mammographically. In the management of a palpable breast mass, a negative mammogram must not discourage biopsy of a clinically suspicious lesion. Electronically Signed By: Mariama cary/marvin:09/13/2023 16:46:15 ACR BI-RADS Category Post-procedure mammogram for marker placement
--- NOTE | 2023-09-13 13:44 | DI.US.S_ITS ---
PROCEDURE: US BX BREAST PERC W VAC DEVICE COMPARISON: None. INDICATIONS: LEFT 6:00 RETRO MASS - BIOPSY FINDINGS: IMPRESSION: Dictated by: Mariama Weiner M.D. on 09/13/2023 at 17:12 Approved by: Mariama Weiner M.D. on 09/13/2023 at 17:12
--- NOTE | 2023-09-13 14:24 | DI.US.S_ITS ---
Patient Name: MENDOZA MCNULTY date: 1980 Sex: F Attending Physician: Js Indications: Date: 09/20/2023 14:42 At the request of: CRISTINE KAUFMAN Procedure: US bx breast perc w vac device ULTRASOUND GUIDED BIOPSY LEFT BREAST WITH MARKING DEVICE INSERTED AND POST DIGITAL MAMMOGRAPHIC AND ULTRASOUND IMAGIN09/13/2023 CLINICAL: Left breast mass. PATIENT CONSENT: Risks (minor bleeding, infection, vasovagal reaction and repeat procedure), benefits and alternatives were explained to the patient and written informed consent was obtained. Correlation is made to exams dated: 09/13/2023 mammogram, 08/26/2023 ultrasound, 08/26/2023 mammogram, and 06/21/2022 mammogram - [facility]. An ultrasound guided biopsy using real-time ultrasound was performed for the 1 cm x 0.6 cm x 0.9 cm mass located in the left breast central to the nipple in the retroareolar region. This was described on the previous ultrasound report. The skin was prepped in the usual manner. Local anesthetic was administered to the access site. A small incision was made in the breast. The abnormality was approached from the lateral aspect. A biopsy needle was placed adjacent to the abnormality under ultrasound guidance. Once the needle was documented to be in the correct location, five specimens were obtained using an automated biopsy gun. The patient received additional local anesthetic during the procedure. A clip was inserted into the biopsy cavity. A sterile dressing was applied to the access site. Post procedure digital mammographic and ultrasound imaging was obtained. The specimens were sent to the laboratory for pathological analysis. IMPRESSION: ULTRASOUND GUIDED BIOPSY BENIGN Ultrasound guided biopsy of the 1 cm x 0.6 cm x 0.9 cm mass in the left breast central to the nipple in the retroareolar region was successful. Pathology indicates benign ductal ectasia (DE) and multifocal periductal and stromal inflammation, chronic-active. Nonspecific findings support mastitis. Pathology results are concordant with imaging findings. Continued Report - Page 2 of 2 Patient Name: MENDOZA MCNULTY date: 1980 Sex: F Attending Physician: Js Indications: Date: 09/20/2023 14:42 At the request of: CRISTINE KAUFMAN Procedure: US bx breast perc w vac device Return to annual mammogram screening schedule is recommended. Results and recommendations will be communicated to the ordering provider's office. This exam was interpreted at Station ID: [id number]. Mariama Valladares M.D. lk,krg/:09/20/2023 14:42:52
--- NOTE | 2023-09-13 14:30 | DI.US.S_ITS ---
Patient Name: MENDOZA MCNULTY date: 1980 Sex: F Attending Physician: Js Indications: Date: 09/13/2023 16:44 At the request of: CRISTINE KAUFMAN Procedure: US axillary only lt LIMITED ULTRASOUND OF LEFT BREAST AND AXILLA: 09/13/2023 CLINICAL: Left axillary node biopsy consult. Comparison is made to exams dated: 09/13/2023 mammogram, 08/26/2023 ultrasound, 08/26/2023 mammogram, and 06/21/2022 mammogram - [facility]. Color flow ultrasound of the left breast axilla was performed on the areas of interest. Castellon scale images of the real-time examination were reviewed. There are multiple benign appearing lymph nodes in the left axillary tail. These lymph nodes display fatty hilum. There is no cortical thickening seen on the current study. For this reason, and axillary biopsy was not performed. IMPRESSION: BENIGN There is no sonographic evidence of malignancy. The multiple lymph nodes are benign. This exam was interpreted at Station ID: [id number]. Electronically Signed By: Mariama cary/:09/13/2023 16:44:28 Ultrasound BI-RADS: 2 Benign
== END ==
PROVIDERS: Family Provider Registered Nurse Diabetes Educator; PCP Registered Nurse Diabetes Educator; Referring Provider Registered Nurse Diabetes Educator; Visit Provider Registered Nurse Diabetes Educator
DX: N60.42 Mammary duct ectasia of left breast (principal); R92.8 Other abnormal and inconclusive findings on diagnostic imaging of breast; N63.32 Unspecified lump in axillary tail of the left breast; N63.42 Unspecified lump in left breast, subareolar; R59.9 Enlarged lymph nodes, unspecified; R92.322 Mammographic fibroglandular density, left breast
CPT/HCPCS: 19083; 76882; 77065

== ENCOUNTER → 2023-11-08 15:45 | Outpatient (CLI) | payer OTHER, MEDICAID, SELFPAY ==
[2023-11-08 21:30] LABS: Influenza A - CEPHEID Flu A NEGATIVE (NEGATIVE); Influenza B - CEPHEID Flu B NEGATIVE (NEGATIVE); Respiratory Syncytial Virus Negative (Negative)
[2023-11-08 21:54] LABS: COVID-19 CEPHEID 4-PLEX PCR Negative (Negative)
== END ==
PROVIDERS: Family Provider Registered Nurse Diabetes Educator; PCP Registered Nurse Diabetes Educator; Visit Provider Physician Assistant
DX: R05.9 Cough, unspecified (principal)
CPT/HCPCS: 0241U

== ENCOUNTER → 2023-11-08 15:54 | Outpatient (CLI) | payer OTHER, MEDICAID, SELFPAY ==
--- NOTE | 2023-11-08 15:55 | DI.RAD.S_ITS ---
PROCEDURE: XR SHOULDER LT MIN 2V INDICATIONS: Neck pain L side radiating into left shoulder and hand TECHNIQUE: 3 views of the shoulder were acquired. COMPARISON: None. FINDINGS: Bones: No fractures or dislocations. No suspicious bony lesions. Visualized ribs appear intact. Acromioclavicular joint space narrowing with osteophytosis. Soft tissues: No suspicious soft tissue calcifications. IMPRESSION: Moderate acromioclavicular osteoarthritis. Dictated by: Jacobo Noguera M.D. on 11/09/2023 at 9:18 Approved by: Jacobo Noguera M.D. on 11/09/2023 at 9:19
--- NOTE | 2023-11-08 15:55 | DI.RAD.S_ITS ---
PROCEDURE: XR CERVICAL SPINE 2V OR 3V INDICATIONS: Neck pain L side radiating into left shoulder and hand TECHNIQUE: 3 view(s) of the cervical spine were acquired. COMPARISON: None. FINDINGS: Bones: No fractures or dislocations to the T1 level. The lateral masses of C1 appear intact on the odontoid view. No suspicious bony lesions. Reversal of the normal cervical lordosis, centered at C4-5. Moderate disc height loss at C3-4, C4-5, C5-6 and C6-7. Minimal facet arthrosis. Soft tissues: No prevertebral soft tissue swelling. IMPRESSION: Moderate, multilevel degenerative disc disease. Dictated by: Jacobo Noguera M.D. on 11/09/2023 at 9:07 Approved by: Jacobo Noguera M.D. on 11/09/2023 at 9:08
== END ==
PROVIDERS: Family Provider Registered Nurse Diabetes Educator; PCP Registered Nurse Diabetes Educator; Referring Provider Physician Assistant; Visit Provider Physician Assistant
DX: M50.31 Other cervical disc degeneration, high cervical region (principal); M19.012 Primary osteoarthritis, left shoulder; R05.9 Cough, unspecified; M25.512 Pain in left shoulder; R20.2 Paresthesia of skin
CPT/HCPCS: 0241U; 72040; 73030

== ENCOUNTER 2023-11-23 12:47 | Emergency (ER) | payer OTHER, MEDICAID, SELFPAY ==
[2023-11-23 12:50] VITALS: BP 149/73; PULSE 80; RESP 16; TEMP 37; O2SAT 97; BMI 35.9
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
[2023-11-23 14:49] VITALS: BP 130/62; PULSE 75; O2SAT 96
[2023-11-23 15:06] LABS: UR Morphine/Opiate cutoff 300 Negative (Negative); Ur Creatinine Normal (Normal); Ur Specific Gravity Normal (Normal); Urine Amphetamines Negative (Negative); Urine Barbiturates Negative (Negative); Urine Benzodiazepines Negative (Negative); Urine Cocaine Negative (Negative); Urine MDMA Negative (Negative); Urine Methadone Negative (Negative); Urine Methamphetamines Negative (Negative); Urine Oxycodone Negative (Negative); Urine Phencyclidine Negative (Negative); Urine Tetrahydrocannabinol Positive (Negative); Urine Tricyclic Antidepressant Negative (Negative); Urine pH Normal (Normal)
[2023-11-23 15:14] VITALS: BP 130/62; PULSE 73; RESP 16
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
== END 2023-11-23 15:43 | disposition home or self-care (01) ==
PROVIDERS: Emergency Provider Student in an Organized Health Care Education/Training Program; Family Provider Registered Nurse Diabetes Educator; PCP Registered Nurse Diabetes Educator
DX: F43.9 Reaction to severe stress, unspecified (principal)
CPT/HCPCS: 80305; 99282; 99283

== ENCOUNTER → 2024-02-28 08:55 | Day surgery (SDC) | payer OTHER, MEDICAID, SELFPAY ==
[2024-02-21 10:29] VITALS: BMI 36.6
--- NOTE | 2024-02-28 09:12 | PM.PREOP ---
Pre-operative Note COVID-19 COVID-19 status: Not tested Interval Note History & Physical reviewed/Exam performed by Physician: Yes Changes to H&P: No ASA Class (for procedural sedation): II
[2024-02-28] MEDS: LACTATED RINGERS 1,000 ML 100 ML IV (09:21)
[2024-02-28 09:22] VITALS: BP 156/68; PULSE 64; RESP 16; TEMP 36.2; O2SAT 96; BMI 36.6
--- NOTE | 2024-02-28 10:04 | SUR.PREOP ---
0940 - pt brought back from OR - per anesthesia, pt began vomiting when she was brought to the room. Given zofran and pt placed in pre-op holding again. Will delay surgery for 2 hours.
--- NOTE | 2024-02-28 10:41 | SUR.PREOP ---
10:00 Patient back to the pre-op holding area due to vomiting after entering the OR suite.. Patient given Toradol and Zofran by the anesthesia provider. Patient states that sometimes she gets migraines and often the pain starts in her neck. Ice pack provided and turned the lights down for comfort. Warm blankets provided
--- NOTE | 2024-02-28 11:01 | SUR.PREOP ---
cont's to sleep - resp even, unlabored. no further emesis. SR remain up x2 with call light in easy reach
[2024-02-28 11:48] VITALS: BP 150/80; PULSE 68; RESP 16; O2SAT 98
--- NOTE | 2024-02-28 11:49 | SUR.PREOP ---
Surgery canceled for now due to previous episode of vomiting; Anesthesia provider discussing in length reason for cancellation at bedside. Patient verbalizes understanding and will contact Dr Mercedes's office for a new surgery date. Home with family in stable condition.
== END | disposition home or self-care (01) ==
PROVIDERS: Family Provider Registered Nurse Diabetes Educator; PCP Registered Nurse Diabetes Educator; Referring Provider Surgery; Visit Provider Surgery
DX: N63.42 Unspecified lump in left breast, subareolar (principal); Z53.09 Procedure and treatment not carried out because of other contraindication
CPT/HCPCS: 19120

== ENCOUNTER 2024-03-20 08:58 | Day surgery (SDC) | payer OTHER, MEDICAID, SELFPAY ==
[2024-03-07 15:20] VITALS: BMI 36.6
[2024-03-20] VITALS (7 sets, daily range): BP systolic 115–138; BP diastolic 65–80; PULSE 75–88; RESP 13–20; TEMP 36.1–36.6; O2SAT 93–98; BMI 37.2
--- NOTE | 2024-03-20 | PATH_ITS ---
[facility] Accession Number: [id number] No. of containers..01 Tissue . 01 Material submitted: . breast - LEFT BREAST MASS . 01 Diagnosis: LEFT BREAST MASS, EXCISION: Benign breast parenchyma with granulomatous inflammation, please see microscopic description. Background duct ectasia, rupture, and focal usual ductal hyperplasia. Negative for atypia or invasive malignancy. MRV 03/26/2024 1300 Local . 01 Comment: As part of ongoing lead quality control technician, this case is also reviewed by Dr. Mehnaz Obregon, who agrees with the interpretation. . 01 Electronically signed: . Karla Prado MD, Pathologist NPI- [id number] . 01 Gross description: . Received in formalin with two patient identifiers and left breast mass, is an unoriented yellow to parekh cauterized fragment of breast (2.0 x 1.5 x 1.7 cm and weighing 2 grams). The margins are inked blue. The specimen is serially sectioned into four slices to reveal a pink-yellow cut surface. . A Vision biopsy clip is found within slice 2 adjacent to the blue-inked margin. Presumed fibrous tissue occupies approximately 80% of the cut surface, and no distinct lesions are identified. The specimen is submitted entirely as follows: . A1: Slice 1 perpendicular. A2: Slice 2 with biopsy site. A3: Slice 3. A4: Slice 4 perpendicular. . The specimen was removed on 03/20/2024, time not provided; cold ischemic time cannot be calculated; and total fixation time is approximately 31 hours. ([id number]) /MRV 03/21/2024 1559 Local . 01 Microscopic: . Microscopic examination of the breast parenchyma reveals granulomatous inflammation with histiocytes, neutrophils, lymphocytes, plasma cells, and giant cells. The histologic findings are nonspecific, and the main differential diagnosis includes idiopathic granulomatous mastitis, cystic neutrophilic granulomatous mastitis, other infections (including fungal organisms and acid-fast bacilli, etc), sarcoidosis, and reaction to foreign material, among others. Given the presence of granulomatous inflammation and lack of identifiable microorganisms on special stains, idiopathic granulomatous mastitis is favored. However, clinical and microbiologic correlation is required. Special stains for bacteria (Gram stain), acid-fast bacilli (AFB special stain), and fungal organisms (PAS special stain) are negative, with appropriate positive control. Foreign material is not identified. . There is no evidence of atypia or malignancy in the submitted material. . 01 Pathologist provided ICD-10: N63.20, N61.22 . 01 CPT . 047959, 117287, 710607, 332381 Specimen Comment: A courtesy copy of this report has been sent to [phone] Performed at: [address] [id number] MD Wesly Calderon MD Phone: [phone]
[2024-03-20] MEDS: LACTATED RINGERS 1,000 ML 42 ML IV (09:11)
[2024-03-20] MEDS: ACETAMINOPHEN 325 MG TABLET 975 MG PO (09:14)
[2024-03-20] MEDS: FAMOTIDINE 20 MG/2 ML VIAL IV (09:14)
[2024-03-20] MEDS: SCOPOLAMINE 1 PATCH TOP (09:14)
[2024-03-20] MEDS: ALBUTEROL/IPRATROPIUM 3 ML AMPUL INH (09:47)
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
--- NOTE | 2024-03-20 10:45 | SUR.OPER ---
Supine on padded OR bed, head on pillow, arms secured on padded arm boards at <90 degrees abduction, legs uncrossed, safety belt at thigh, tape over blanket over lower legs.
[2024-03-20] MEDS: BUPIVACAINE 0.5% W/ EPI (PF) 10 ML VIAL 30 ML INJ (10:50)
--- NOTE | 2024-03-20 11:06 | P.OP_ITS ---
Operative Date/Time/Diagnoses Date of procedure: 03/20/24 Time of procedure: 11:06 Pre-op diagnosis: Left breast mass Post-op diagnosis: same Procedure & Clinicians Procedure: Excisional biopsy of left breast mass Same procedure as scheduled: Yes Surgeon: Arun Mercedes Independent Distributor: Eliecer Lugo Anesthesia Type: General Operative Notes Procedure in detail: The patient was brought to the operating room and anesthesia was induced. She was positioned in the supine position. The left breast was prepped and draped in the usual fashion and a time-out was performed. We injected some local anesthetic into the skin and subcutaneous tissue. We made an incision incision along the inferior areolar border with a scalpel. We lifted the nipple skin off the underlying breast tissue. We came to a 1 cm mass lying just deep to the central portion of the areola. We resected the mass. There appeared to be a dilated duct connect in the mass of the nipple. There were no other palpable masses. We injected additional local. We closed in laye rs using multiple interrupted 3-0 Vicryl dermal sutures and a running 4-0 Monocryl subcuticular stitch. Sterile dressings were applied. EBL: 10 mL Specimen: Left breast mass Post-operative Condition: stable Disposition: PACU
[2024-03-20] MEDS: KETOROLAC 30 MG/ML VIAL 15 MG IV (11:35)
== END 2024-03-20 13:11 | disposition home or self-care (01) ==
PROVIDERS: Family Provider Registered Nurse Diabetes Educator; PCP Registered Nurse Diabetes Educator; Referring Provider Surgery; Visit Provider Surgery
PROC: (CPT 19120; principal; 2024-03-20 10:15)
DX: L92.9 Granulomatous disorder of the skin and subcutaneous tissue, unspecified (principal); N62 Hypertrophy of breast
CPT/HCPCS: 19120; J1100; J1885; J2250; J2405; J2704; J3010

== ENCOUNTER → 2024-03-26 14:59 | Outpatient (CLI) | payer OTHER, MEDICAID, SELFPAY ==
[2024-03-26 17:50] LABS: Alanine Aminotransferase 14 IU/L (<35); Albumin 4.1 g/dL (3.5-5.0); Albumin Globulin Ratio 1.3 (1.0-2.8); Alkaline Phosphatase 67 U/L (38-126); Aspartate Aminotransferase 17 IU/L (14-36); BUN Creatinine Ratio 11.2 (6-22); Bilirubin Total 0.6 mg/dL (0.2-1.3); Blood Urea Nitrogen 10 mg/dL (7-17); Calcium 8.6 mg/dL (8.4-10.2); Carbon Dioxide 30 mmol/L (22-32); Chloride 99 mmol/L (98-107); Estimated Glomerular Filt Rate > 60 mL/min (>60); Globulin 3.2 g/dL (1.7-4.1); Glucose 112 mg/dL (70-100); HEMOLYSIS < 15 (0-50); Potassium 3.9 mmol/L (3.4-5.1); Sodium 134 mmol/L (137-145); Total Protein 7.3 g/dL (6.3-8.2)
== END ==
LOC: LAB 15:01
PROVIDERS: Family Provider Registered Nurse Diabetes Educator; PCP Registered Nurse Diabetes Educator; Referring Provider Orthopaedic Surgery; Visit Provider Orthopaedic Surgery
DX: M17.0 Bilateral primary osteoarthritis of knee (principal)
CPT/HCPCS: 36415; 80053

== ENCOUNTER → 2024-06-19 10:48 | Outpatient (CLI) | payer OTHER, MEDICAID, SELFPAY ==
--- NOTE | 2024-06-19 10:53 | DI.CT.S_ITS ---
PROCEDURE: CT SINUS SCREEN WO CON INDICATIONS: Chronic pansinusitis TECHNIQUE: Noncontrast 3.0 mm axial images acquired from the frontal sinuses to the mid-sella, with coronal and sagittal reformats. For radiation dose reduction, the following was used: automated exposure control, adjustment of mA and/or kV according to patient size. COMPARISON: None. FINDINGS: Image quality: Excellent. Maxillary Sinuses: No bony remodeling or destruction. There is mild mucosal thickening within the left maxillary sinus. The Ethmoid Air Cells: No bony remodeling or destruction. Sinuses are clear. Sphenoid Sinuses: No bony remodeling or destruction. Sinuses are clear. Frontal Sinuses: No bony remodeling or destruction. Sinuses are clear. Ostiomeatal Complexes: The ostiomeatal complexes are patent, yet they are constitutionally narrowed, with bilateral Damian cells. Miscellaneous: Visualized intra-orbital contents are normal. There are bilateral ania bullosa. There is mild rightward nasal septal deviation. Note is made of relatively poor dentition, which is partially seen. IMPRESSION: Focal left maxillary sinus disease. The ostiomeatal complexes are patent, yet they are constitutionally narrowed, with bilateral Damian cells. Dictated by: Dominic Krishnan M.D. on 06/19/2024 at 10:54 Approved by: Dominic Krishnan M.D. on 06/19/2024 at 10:55
== END ==
PROVIDERS: Family Provider Registered Nurse Diabetes Educator; PCP Registered Nurse Diabetes Educator; Referring Provider Otolaryngology; Visit Provider Otolaryngology
DX: J32.4 Chronic pansinusitis (principal); J34.2 Deviated nasal septum; J34.3 Hypertrophy of nasal turbinates
CPT/HCPCS: 70486

== ENCOUNTER 2024-08-27 15:25 | Emergency (ER) | payer OTHER, SELFPAY ==
[2024-08-27 15:32] VITALS: BP 179/96; PULSE 89; RESP 18; TEMP 36.4; O2SAT 97; BMI 37.8
[2024-08-27 16:48] LABS: Influenza A - CEPHEID Flu A NEGATIVE (NEGATIVE); Influenza B - CEPHEID Flu B NEGATIVE (NEGATIVE); Respiratory Syncytial Virus Negative (Negative)
[2024-08-27 16:49] LABS: COVID-19 CEPHEID 4-PLEX PCR Negative (Negative)
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
[2024-08-27] MEDS: ONDANSETRON 4 MG ODT SL (17:27)
[2024-08-27 17:31] VITALS: BP 173/84; PULSE 84; RESP 18; O2SAT 98
== END 2024-08-27 17:32 | disposition home or self-care (01) ==
PROVIDERS: Student in an Organized Health Care Education/Training Program; Emergency Provider Student in an Organized Health Care Education/Training Program; Family Provider Registered Nurse Diabetes Educator; PCP Registered Nurse Diabetes Educator
DX: R11.2 Nausea with vomiting, unspecified (principal); R10.9 Unspecified abdominal pain
CPT/HCPCS: 0241U; 99283

== ENCOUNTER → 2024-09-11 07:41 | Outpatient (CLI) | payer OTHER, SELFPAY ==
--- NOTE | 2024-09-11 07:43 | DI.US.S_ITS ---
PROCEDURE: US ABDOMEN LIMITED INDICATIONS: reeval hx gallstones, RUQ pain TECHNIQUE: Real-time scanning was performed of the abdominal and retroperitoneal organs, with image documentation. COMPARISON: None. FINDINGS: Liver: Liver is normal in size and homogeneous in echotexture. Diffusely echogenic liver. Gallbladder: Single 2.6 centimeter gallstone. No wall thickening. No pericholecystic edema. Negative sonographic Renteria's sign. Biliary ducts: Intrahepatic bile ducts are non-dilated. Extrahepatic bile duct caliber measures 3.6 mm. Normal is 6-7 mm or less in diameter, or 10 mm or less post-cholecystectomy. Pancreas: Visualized portions of the pancreas are sonographically normal. Miscellaneous: No free abdominal fluid. IMPRESSION: Cholelithiasis without sonographic evidence of cholecystitis. Echogenic liver. Finding typically represents fatty infiltration; however, finding is nonspecific and correlation with clinical and laboratory findings is recommended to exclude other etiologies including hepatic cirrhosis. Dictated by: Annika Betancur MD, PhD on 09/11/2024 at 11:41 Approved by: Annika Betancur MD, PhD on 09/11/2024 at 11:42
--- NOTE | 2024-09-11 07:43 | DI.US.S_ITS ---
PROCEDURE: US PELVIC COMPLETE INDICATIONS: abnormal uterine bleeding TECHNIQUE: Real-time scanning was performed of the pelvic organs, with image documentation. Additional endovaginal scanning was necessary due to incomplete visualization of the adnexal and endometrial structures by transabdominal scanning. COMPARISON: None. FINDINGS: Uterus: Uterus is anteverted and normal in size at 11.0 x 4.7 x 5.5 cm. The myometrium is homogeneous. The endometrium measures 9.7 mm combined thickness. Ovaries: The right ovary measures 3.6 x 1.8 x 3.2 cm, with a calculated ovarian volume of 10.7 cc. The left ovary measures 2.6 x 2.6 x 3.7 cm, with a calculated ovarian volume of 12.8 cc. The ovaries have a normal sonographic appearance. Less than 12 follicles can be seen in each ovary. No adnexal masses are seen. Other: No pathologic free abdominal or pelvic fluid. IMPRESSION: Unremarkable pelvic sonogram. Dictated by: Annika Betancur MD, PhD on 09/11/2024 at 12:14 Approved by: Annika Betancur MD, PhD on 09/11/2024 at 12:21
== END ==
PROVIDERS: Family Provider Registered Nurse Diabetes Educator; PCP Registered Nurse Diabetes Educator; Referring Provider Registered Nurse Diabetes Educator; Visit Provider Registered Nurse Diabetes Educator
DX: N93.9 Abnormal uterine and vaginal bleeding, unspecified (principal); K80.20 Calculus of gallbladder without cholecystitis without obstruction; R10.11 Right upper quadrant pain
CPT/HCPCS: 76705; 76830; 76856

== ENCOUNTER → 2024-09-19 08:30 | Outpatient (CLI) | payer OTHER, SELFPAY ==
--- NOTE | 2024-09-19 08:33 | DI.RAD.S_ITS ---
PROCEDURE: XR CHEST 2V INDICATIONS: Chronic cough TECHNIQUE: 2 views of the chest were acquired. COMPARISON: None. FINDINGS: Heart, mediastinum and pulmonary vascular: Heart is normal in size and configuration. Mediastinum is unremarkable. Pulmonary vascular is normal. Lungs: Clear Pleural spaces: Normal-no effusions or pneumothorax. Bones and soft tissues: Normal IMPRESSION: Normal chest. Dictated by: Junaid Guerrero M.D. on 09/19/2024 at 11:23 Approved by: Junaid Guerrero M.D. on 09/19/2024 at 11:24
== END ==
LOC: RAD 08:32
PROVIDERS: Family Provider Registered Nurse Diabetes Educator; PCP Registered Nurse Diabetes Educator; Referring Provider Otolaryngology; Visit Provider Otolaryngology
DX: R05.3 Chronic cough (principal); F17.210 Nicotine dependence, cigarettes, uncomplicated
CPT/HCPCS: 71046

== ENCOUNTER → 2024-09-20 08:15 | Outpatient (CLI) | payer OTHER, SELFPAY ==
--- NOTE | 2024-09-20 08:15 | DI.ECHO.S_ITS ---
[facility] : : [id number] : : [place] : : [id number] : : Phone: [phone] Echocardiogram Report + + :Name: MENDOZA MCNULTY Study Date: 09/20/2024 Height: 64 in : :[facility] ReadingLocation: Weight: 218 lb : : Gender: Female BSA: 2.0 m2 : :: 1980 Age: 44 yrs BP: 177/90 mmHg: :Reason For Study: MURMUR : :Ordering Physician: MANDEEP, : :CRISTINE Performed By: Héctor Bellamy : :Referring: CRISTINE KAUFMAN : + + Interpretation Summary The ejection fraction is estimated to be 55-60%. The right ventricle is mildly dilated. The right ventricular systolic function is normal. There is trace tricuspid regurgitation. The right ventricular systolic pressure is estimated to be at least 30 mmHg based on an estimated right atrial pressure of 3 mm Hg. Procedure: A two-dimensional transthoracic echocardiogram with color flow and Doppler was performed. The study quality was technically good. There is no prior echocardiogram noted for this patient. The patient was in normal sinus rhythm during the exam. Left Ventricle: The left ventricle is normal in size. Left ventricular wall thickness is mildly increased. There is no ventricular septal defect visualized. A false chord is noted (normal variant). The ejection fraction is estimated to be 55-60%. There are no focal wall motion abnormalities. Diastolic parameters suggest probable normal left ventricular diastolic function and normal filling pressures. Right Ventricle: The right ventricle is mildly dilated. The right ventricular systolic function is normal. Atria: The left atrium is moderately dilated. Right atrial size is normal. There is no Doppler evidence for an interatrial shunt. Mitral Valve: The mitral valve leaflets appear normal. There is no evidence of stenosis, fluttering, or prolapse. There is trace mitral regurgitation. Aortic Valve: The aortic valve is trileaflet. The aortic valve opens well. No aortic regurgitation is present. Tricuspid Valve: The tricuspid valve leaflets are thin and pliable. There is trace tricuspid regurgitation. The right ventricular systolic pressure is estimated to be at least 30 mmHg based on an estimated right atrial pressure of 3 mm Hg. Pulmonic Valve: The pulmonic valve leaflets are thin and pliable; valve motion is normal. There is no pulmonic valvular regurgitation. Great Vessels: The aortic root is normal size. The dimensions of the ascending aorta are normal. The pulmonary artery is normal size. The inferior vena cava appeared normal. Pericardium/ Pleura There is no pericardial effusion. There is no pleural effusion. MMode/2D Measurements & Calculations LVIDd: 5.0 cm LVOT diam: 1.9 cm LVIDs: 3.8 cm Ao root diam: 2.9 cm FS: 23.1 % asc Aorta Diam: 3.2 cm EPSS: 0.52 cm Ao Arch Diam (Prox Trans): 1.7 cm IVSd: 1.2 cm LVPWd: 1.1 cm LV hernandez. diameter/BSA (cm/m^2): 2.5 LV sys. diameter/BSA (cm/m^2): 1.9 LA A2 area: 26.6 cm2 RA long axis: 4.1 cm LA A4 area: 24.5 cm2 RA area: 11.9 cm2 LA length (vol): 5.8 cm RA vol: 29.1 ml LA vol: 94.7 ml RA : 14.3 ml/m2 LA vol index: 46.7 ml/m2 IVC diam: 1.8 cm RVD1 (basal): 4.3 cm RVD2 (mid): 3.5 cm TAPSE: 2.5 cm Doppler Measurements & Calculations Ao V2 max: 172.1 cm/sec LVOT Max Lno: 119.3 cm/sec Ao V2 mean: 123.0 cm/sec LV V1 max P.7 mmHg Ao max P.8 mmHg LV V1 VTI: 30.0 cm Ao mean P.8 mmHg CAROL(I,D): 1.9 cm2 Ao V2 VTI: 42.1 cm CAROL(V,D): 1.9 cm2 sev ratio: 0.71 CAROL indexed to BSA (cm^2/m^2): 0.96 MV E max lon: 73.9 cm/sec TR max lon: 260.3 cm/sec MV A max lon: 66.2 cm/sec TR max P.1 mmHg MV E/A: 1.1 PA V2 max: 122.0 cm/sec Med Peak E' Lon: 8.7 cm/sec PA V2 mean: 84.1 cm/sec E/E' med: 8.5 PA mean P.2 mmHg Lat Peak E' Lon: 8.6 cm/sec PA pr(Accel): 17.3 mmHg E/E' lat: 8.6 E/e' average: 8.5 MV dec time: 0.15 sec SVLVOT): 81.8 ml Reading Physician:01:48 PM
== END ==
PROVIDERS: Family Provider Registered Nurse Diabetes Educator; PCP Registered Nurse Diabetes Educator; Referring Provider Registered Nurse Diabetes Educator; Visit Provider Registered Nurse Diabetes Educator
DX: R01.1 Cardiac murmur, unspecified (principal); I07.1 Rheumatic tricuspid insufficiency
CPT/HCPCS: 93306

== ENCOUNTER 2024-10-06 22:33 | Emergency (ER) | payer OTHER, SELFPAY ==
[2024-10-06 22:35] VITALS: BP 167/81; PULSE 90; RESP 18; TEMP 37; O2SAT 99; BMI 37.8
[2024-10-07 00:05] VITALS: BP 171/89; PULSE 79; O2SAT 98
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
== END 2024-10-07 01:45 | disposition home or self-care (01) ==
PROVIDERS: Emergency Provider Emergency Medicine; Family Provider Registered Nurse Diabetes Educator; PCP Registered Nurse Diabetes Educator
DX: L02.211 Cutaneous abscess of abdominal wall (principal); L03.311 Cellulitis of abdominal wall; I96 Gangrene, not elsewhere classified
CPT/HCPCS: 10060; 87070; 87077; 87147; 87186; 87205; 99282; 99283

== ENCOUNTER → 2024-10-10 13:07 | Outpatient (CLI) | payer OTHER, SELFPAY ==
--- NOTE | 2024-10-10 13:08 | DI.MG.S_ITS ---
MM screening mammo BI: 10/10/2024. BI-RADS: 1 CLINICAL: 44-year old female for bilateral screening mammogram. Tyrer-Cuzick lifetime risk of 16.1%. No personal or first-degree family history of breast cancer. Current reported family history of breast cancer: paternal aunt and paternal aunt's daughter. The patient had a prior left breast biopsy. PRIOR EXAMS 09/13/2023, 08/26/2023, 06/21/2022. MAMMOGRAPHY TECHNIQUE: 2D and 3D (tomosynthesis) digital mammographic views obtained, with additional images as needed for full coverage. Current study was also evaluated with a Computer Aided Detection (CAD) system. DENSITY B. There are scattered areas of fibroglandular density. MAMMOGRAPHY FINDINGS Bilateral: No suspicious mass, asymmetry, microcalcification, or other abnormality seen. No significant change from comparison. IMPRESSION: * No evidence of malignancy. RECOMMENDATIONS Bilateral * Annual screening mammography. OVERALL ASSESSMENT CATEGORY BI-RADS-1: Negative. The [employer] recommends annual screening mammography beginning at age 40 for women with average risk of breast cancer. ELECTRONICALLY SIGNED: Cynthia Mcdermott M.D. on 10/11/2024 at 08:17:23 AM PT Interpreting Station ID: [id number]
== END ==
PROVIDERS: Family Provider Registered Nurse Diabetes Educator; PCP Registered Nurse Diabetes Educator; Referring Provider Registered Nurse Diabetes Educator; Visit Provider Registered Nurse Diabetes Educator
DX: Z12.31 Encounter for screening mammogram for malignant neoplasm of breast (principal); Z80.3 Family history of malignant neoplasm of breast
CPT/HCPCS: 77063; 77067

== ENCOUNTER → 2024-10-31 10:05 | Outpatient (CLI) | payer OTHER, SELFPAY | LOC: WC 10:06 | PROVIDERS: Family Provider Registered Nurse Diabetes Educator; PCP Registered Nurse Diabetes Educator; Referring Provider Physician Assistant; Visit Provider Surgery | DX: T81.89XA Other complications of procedures, not elsewhere classified, initial encounter (principal); S31.103A Unspecified open wound of abdominal wall, right lower quadrant without penetration into peritoneal cavity, initial encounter | CPT/HCPCS: 11042; 99203; 99213 ==

== ENCOUNTER → 2024-11-07 09:13 | Outpatient (CLI) | payer OTHER, SELFPAY | LOC: WC 09:14 | PROVIDERS: Family Provider Registered Nurse Diabetes Educator; PCP Registered Nurse Diabetes Educator; Referring Provider Physician Assistant; Visit Provider Surgery | DX: T81.89XA Other complications of procedures, not elsewhere classified, initial encounter (principal); S31.103A Unspecified open wound of abdominal wall, right lower quadrant without penetration into peritoneal cavity, initial encounter | CPT/HCPCS: 11042 ==

== ENCOUNTER → 2024-11-14 10:16 | Outpatient (CLI) | payer OTHER, SELFPAY | LOC: WC 10:17 | PROVIDERS: Family Provider Registered Nurse Diabetes Educator; PCP Registered Nurse Diabetes Educator; Referring Provider Registered Nurse Diabetes Educator; Visit Provider Surgery | DX: S31.103D Unspecified open wound of abdominal wall, right lower quadrant without penetration into peritoneal cavity, subsequent encounter (principal); L08.9 Local infection of the skin and subcutaneous tissue, unspecified; M79.7 Fibromyalgia; F17.210 Nicotine dependence, cigarettes, uncomplicated | CPT/HCPCS: 99212; 99213 ==

== ENCOUNTER 2024-12-02 07:56 | Emergency (ER) | payer OTHER, SELFPAY ==
[2024-12-02] VITALS (20 sets, daily range): BP systolic 155–223; BP diastolic 74–113; PULSE 58–91; RESP 13–25; TEMP 36.4; O2SAT 95–100; BMI 36.6
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
--- NOTE | 2024-12-02 07:59 | EKG_ITS ---
[address] [address] Test Date: 2024-12-02 Pat Name: Jeni Baptiste Department: Room: Gender: Female Living Coach: SHELL : 1980 Requested By: Order Number: [id number] Reading MD: Basilio Gomez Measurements Intervals [place] Rate: 52 P: 40 SD: 154 QRS: 48 QRSD: 110 T: 54 QT: 476 QTc: 442 Interpretive Statements Sinus bradycardia Incomplete left bundle branch block Minimal voltage criteria for LVH, may be normal variant ( [place] product ) Electronically Signed On 12-03-2024 7:53:17 PDT by Basilio Gomez
--- NOTE | 2024-12-02 08:07 | DI.RAD.S_ITS ---
PROCEDURE: XR CHEST 1V INDICATIONS: lethargy TECHNIQUE: One view of the chest was acquired. COMPARISON: [facility], CR, XR CHEST 2V, 09/19/2024, 8:28. FINDINGS: Surgical changes and devices: None. Lungs and pleura: Lungs are clear. No pleural effusions or pneumothorax. Mediastinum: Mediastinal contours appear normal. Heart size is normal. Bones and chest wall: No suspicious bony lesions. Overlying soft tissues appear unremarkable. IMPRESSION: No acute cardiopulmonary abnormality is seen. Dictated by: Len Torres M.D. on 12/02/2024 at 8:28 Approved by: Len Torres M.D. on 12/02/2024 at 8:29
[2024-12-02 08:11] LABS: Add Manual Diff / Slide Review NO; Basophils Absolute Auto 100 /uL (0-100); Basophils Percent Auto 0.8 % (0-2); Eosinophils Absolute Auto 200 /uL (0-450); Eosinophils Percent Auto 2.4 % (2-4); Hematocrit 41.8 % (36-46); Hemoglobin 14.1 g/dL (12.0-16.0); Lymphocytes Absolute Auto 1500 /uL (1100-4500); Lymphocytes Percent Auto 15.3 % (25-40); Mean Corpuscular HGB Conc 33.7 % (30-36); Mean Corpuscular Hemoglobin 30.6 PG (26-34); Mean Corpuscular Volume 90.9 fL (80-100); Monocytes Absolute Auto 500 /uL (0-900); Neutrophils Absolute Auto 7400 /uL (1500-7000); Neutrophils Percent Auto 76.5 % (50-75); Platelet Count 430 X10^3/uL (150-400); White Blood Cell Count 9.6 X10^3/uL (4.5-11.0)
--- NOTE | 2024-12-02 08:19 | DI.CT.S_ITS ---
PROCEDURE: CT HEAD/BRAIN WO CON INDICATIONS: lethargy, inc BP, low HR TECHNIQUE: Noncontrast 4.5 mm thick angled axial sections acquired from the foramen magnum to the vertex, with coronal and sagittal reformats. For radiation dose reduction, the following was used: automated exposure control, adjustment of mA and/or kV according to patient size. COMPARISON: None. FINDINGS: Image quality: Diagnostic. CSF spaces: Basal cisterns are patent. No extra-axial fluid collections. Ventricles are normal in size and shape. Brain: No midline shift. No intracranial mass effect or hemorrhage. Castellon-white matter interface is normal. Skull and face: Calvarium and visualized facial bones are intact, without suspicious lesions. Sinuses: Visualized sinuses and mastoids are clear. IMPRESSION: No acute intracranial pathology. Dictated by: Len Torres M.D. on 12/02/2024 at 8:57 Approved by: Len Torres M.D. on 12/02/2024 at 8:58
[2024-12-02] MEDS: SODIUM CHLORIDE 0.9% 1,000 ML 1000 ML IV (08:20)
[2024-12-02] MEDS: hydrALAZINE 20 MG/ML VIAL 5 MG IV (08:21)
[2024-12-02 08:25] LABS: Alanine Aminotransferase 16 IU/L (<35); Albumin 4.3 g/dL (3.5-5.0); Albumin Globulin Ratio 1.3 (1.0-2.8); Alkaline Phosphatase 80 U/L (38-126); Aspartate Aminotransferase 21 IU/L (14-36); BUN Creatinine Ratio 16.9 (6-22); Bilirubin Total 0.6 mg/dL (0.2-1.3); Blood Urea Nitrogen 11 mg/dL (7-17); Calcium 8.4 mg/dL (8.4-10.2); Carbon Dioxide 27 mmol/L (22-32); Chloride 102 mmol/L (98-107); Estimated Glomerular Filt Rate > 60 mL/min (>60); Ethanol (ETOH) < 10 mg/dL (<10); Globulin 3.2 g/dL (1.7-4.1); Glucose 178 mg/dL (70-99); HEMOLYSIS 16 (0-50); Lactate (Lactic Acid) 0.8 mmol/L (0.7-2.1); Lipase 70 U/L (23-300); Potassium 3.8 mmol/L (3.4-5.1); Sodium 137 mmol/L (137-145); Total Protein 7.5 g/dL (6.3-8.2)
[2024-12-02 08:37] LABS: Troponin I < 0.012 ng/mL (0.01-0.034)
[2024-12-02 09:02] LABS: Thyroid Stimulating Hormone 0.995 uIU/mL (0.47-4.68)
[2024-12-02 09:15] LABS: Ur Creatinine Normal (Normal); Ur Specific Gravity Normal (Normal); Urine pH Normal (Normal)
[2024-12-02 09:16] LABS: Urine Amphetamines Negative (Negative); Urine Barbiturates Negative (Negative); Urine Benzodiazepines Negative (Negative); Urine Cocaine Negative (Negative); Urine MDMA Negative (Negative); Urine Methadone Negative (Negative); Urine Opiates Negative (Negative); Urine Oxycodone Negative (Negative); Urine Phencyclidine Negative (Negative); Urine THC Positive (Negative); Urine Tricyclic Antidepressant Negative (Negative)
[2024-12-02 09:18] LABS: Appearance Urine UA CLEAR; Bilirubin Urine UA NEGATIVE (NEGATIVE); Color Urine UA YELLOW; Glucose Urine UA TRACE g/dL (Negative); Ketones Urine UA TRACE (NEGATIVE); Leukocyte Esterase Urine UA NEGATIVE (NEGATIVE); Nitrite Urine UA NEGATIVE (Negative); Occult Blood Urine UA NEGATIVE (Negative); Protein Urine UA NEGATIVE (Negative); Urobilinogen Urine UA 0.2 E.U./dL (0.2)
[2024-12-02 09:22] LABS: Bacteria Urine None Seen; Culture Indicated Urine Cult Not Indicated; RBC Urine 0-1/HPF (0-5/HPF); Squamous Epithelial Cell Urine None Seen (0-5/HPF); Urine Volume 10mL (spun); WBC Urine None Seen (0-5/HPF)
[2024-12-02 09:55] LABS: COVID-19 CEPHEID 4-PLEX PCR Negative (Negative); Influenza A - CEPHEID Flu A NEGATIVE (NEGATIVE); Influenza B - CEPHEID Flu B NEGATIVE (NEGATIVE); Respiratory Syncytial Virus Negative (Negative)
--- NOTE | 2024-12-02 10:39 | PC.NURSE ---
Pt a&ox4. Ambulated to bathroom independently and with steady gait. Easily rousable and states that she is still feeling 4/10 neck pain.
[2024-12-02 11:05] LABS: Troponin I < 0.012 ng/mL (0.01-0.034)
[2024-12-02] MEDS: KETOROLAC 30 MG/ML VIAL 15 MG IV (11:22)
--- NOTE | 2024-12-02 12:29 | PC.NURSE ---
pt states she still has headache.
--- NOTE | 2024-12-02 13:23 | CM.SWNOTE ---
Addendum entered by Mili Shi 12/02/24 14:08: CHEMICAL PROCESS ANALYST speaks with [facility] and they report concern for smell of feces in the home, feces identified in the carpet, patient's s/o presented without concern of this issue and there is concern for substance use in the home. There were concerns for children running around the home in these living conditions. EMS plans to make CPS report, CHEMICAL PROCESS ANALYST encourages them to do so, as CHEMICAL PROCESS ANALYST was unable to identify any of these issues from patient based on limited conversation. EMS to make CPS report. Mili Shi, [facility] Original Note: ED CHEMICAL PROCESS ANALYST Note CHEMICAL PROCESS ANALYST receives consult due to concern for patient's reported social detriments in triage. Patient arrives to ED via EMS due to concern for lethargy, N/V and neck pain. In triage patient requests to meet with CHEMICAL PROCESS ANALYST. Per EMS, it was reported that there were concerns for the living condition of the home and there are two school aged children at home, EMS reported to RN plans to contact CPS and make a report. Patient's PCP is ROGELIO Mason. Patient has Medicaid insurance. 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 CHEMICAL PROCESS ANALYST reviews patient's insurance and patient is active with Medicaid. CHEMICAL PROCESS ANALYST attempts to meet with patient twice, both times patient presents as lethargic, somnolent and unable to keep her eyes open. Upon initial attempt, patient denies need to meet with CHEMICAL PROCESS ANALYST and states that she is very tired and not able to speak right now. CHEMICAL PROCESS ANALYST re-enters room upon patient's discharge, patient continues to presents as somnolent, unable to actively engage in conversation and eyes closed. Per RN, patient was able to safely ambulate to the bathroom earlier. Patient endorses that her kids are at home with their dad, when asked about safety at home, patient endorses everyone is safe at home. Patient endorses she is engaged with [facility] for MH services. Patient denies any resources at this time. CHEMICAL PROCESS ANALYST encourages patient to follow up with [place] [employer] [facility] regarding her Medicaid insurance and encourages patient to f/u with PCP and provider at [facility]. CHEMICAL PROCESS ANALYST contacts [facility] and Non Emergent [facility] line to confirm that CPS report was made based on visualized concerns observed by EMS. Plan: Patient to discharge to home upon medical clearance, patient encouraged to follow up with outpatient providers and f/u with insurance. Mili Shi, DATA MIGRATION LEAD
== END 2024-12-02 13:12 | disposition home or self-care (01) ==
PROVIDERS: Emergency Provider Emergency Medicine; Family Provider Registered Nurse Diabetes Educator; PCP Registered Nurse Diabetes Educator
DX: R53.83 Other fatigue (principal); I10 Essential (primary) hypertension; M54.2 Cervicalgia
CPT/HCPCS: 0241U; 36415; 70450; 71045; 80053; 80305; 80320; 81001; 81025; 83605; 83690; 84443; 84484; 85025; 93005; 96361; 96374; 96375; 99284; J0360; J1885

== ENCOUNTER 2025-06-01 23:56 | Emergency (ER) | payer SELFPAY ==
[2025-06-02 00:05] VITALS: BP 140/79; PULSE 90; RESP 18; TEMP 36.4; O2SAT 97; BMI 36.7
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
[2025-06-02] MEDS: TRIMETH/SULFA 160/800 (DS) TABLET 1 TAB PO (01:08)
[2025-06-02] MEDS: LIDOCAINE 1% 20 ML 4.1 ML INJ (01:10)
[2025-06-02 01:24] VITALS: BP 147/74; PULSE 82; RESP 16; O2SAT 98
== END 2025-06-02 01:25 | disposition home or self-care (01) ==
PROVIDERS: Emergency Provider Emergency Medicine; Family Provider Registered Nurse Diabetes Educator; PCP Registered Nurse Diabetes Educator
DX: L03.115 Cellulitis of right lower limb (principal)
CPT/HCPCS: 96372; 99283; J0696